=== PATIENT | male | born 1965 | race Caucasian/White ===

== ENCOUNTER 2018-06-29 19:29 | Emergency (ER) | payer OTHER ==
[~2018-06-29] VITALS: Ht 175.3 cm; Wt 72.6 kg
--- NOTE | 2018-06-29 20:31 | NUR ---
PT PRESENTED TO THE ER WITH A C/O BILATERAL LOWER BACK PAIN. PT STATED THAT HE HAS BACK PAIN CONSTANTLY AND ESPECIALLY WHEN HE BENDS OVER. PT AMBULATED TO BED #6 WITH A SLOW STEADY GAIT. URINE SAMPLE OBTAINED AND SENT TO LAB.
[2018-06-29] MEDS ORDERED: IBUPROFEN 600 MG TABLET PO ONE ×2 (20:45→21:00)
[2018-06-29] MEDS ORDERED: CYCLOBENZAPRINE 10 MG TABLET ONE (20:45)
[2018-06-29] MEDS ORDERED: CYCLOBENZAPRINE 10 MG TABLET PO ONE (21:00)
--- NOTE | 2018-06-29 21:01 | NUR ---
PT RETURNED FROM RADIOLOGY VIA .
[2018-06-29] MEDS ORDERED: LORAZEPAM 1 MG TABLET ONE (21:25)
[2018-06-29] MEDS ORDERED: LORAZEPAM 1 MG TABLET PO ONE (21:30)
[2018-06-29 21:34] VITALS: BP 138/88
== END 2018-06-29 21:35 | disposition home or self-care (01) ==
LOC: ER 19:31
DX: M54.5 Low back pain (principal); I10 Essential (primary) hypertension; F17.200 Nicotine dependence, unspecified, uncomplicated; I25.10 Atherosclerotic heart disease of native coronary artery without angina pectoris; Z86.79 Personal history of other diseases of the circulatory system; Z95.5 Presence of coronary angioplasty implant and graft; E78.5 Hyperlipidemia, unspecified
CPT/HCPCS: 72100; 99284; A4606; Z7610

== ENCOUNTER 2018-08-21 15:26 | Emergency (ER) | payer OTHER ==
[~2018-08-21] VITALS: Ht 170.2 cm; Wt 74.4 kg
[~2018-08-21 15:26] MED LIST: ASPI-605 PO; ATOR40TA PO; BUSP30TA2 PO; CALC60OI5 TP; CYCL10TA9 PO; ESCI10TA PO; HYDR-3028 PO; IBUP-1953 PO; LORA-259 PO; MECL-102 PO; METO25TA6 PO; NITR0.4T48 SL; NITR1PAT67 TD; ONDA4TAB5 PO; PRAZ1CAP5 PO; PROP10TA10 PO; QUET100T PO; RAMI2.5C2 PO; TEMA30CA5 PO; [UNRECOGNIZED DRUG - OTHER] TOP
[2018-08-21] MEDS ORDERED: IBUPROFEN 600 MG TABLET PO ONE ×2 (15:58→16:00)
[2018-08-21 16:04] VITALS: BP 128/76
== END 2018-08-21 16:06 | disposition home or self-care (01) ==
LOC: ER 15:33
DX: M54.5 Low back pain (principal); I10 Essential (primary) hypertension; E78.5 Hyperlipidemia, unspecified; F17.200 Nicotine dependence, unspecified, uncomplicated; I25.10 Atherosclerotic heart disease of native coronary artery without angina pectoris; Z95.818 Presence of other cardiac implants and grafts; Z79.82 Long term (current) use of aspirin; Z79.899 Other long term (current) drug therapy
CPT/HCPCS: 99283; A4606; Z7610

== ENCOUNTER 2018-08-26 16:01 | Emergency (ER) | payer OTHER ==
[~2018-08-26] VITALS: Ht 152.4 cm; Wt 76.2 kg
[2018-08-26 16:01] VITALS: BP 136/95
--- NOTE | 2018-08-26 16:40 | NUR ---
CALLED THE OFFICE OF DR AZEVEDO AND A PAGE WAS SENT OUT TO HIM
== END 2018-08-26 17:24 | disposition home or self-care (01) ==
LOC: ER 16:03
DX: F41.9 Anxiety disorder, unspecified (principal); F41.0 Panic disorder [episodic paroxysmal anxiety]; I10 Essential (primary) hypertension; I25.10 Atherosclerotic heart disease of native coronary artery without angina pectoris; E78.5 Hyperlipidemia, unspecified; F17.200 Nicotine dependence, unspecified, uncomplicated; Z95.818 Presence of other cardiac implants and grafts; Z88.6 Allergy status to analgesic agent; Z79.82 Long term (current) use of aspirin; Z79.899 Other long term (current) drug therapy
CPT/HCPCS: 99284; A4606; Z7610

== ENCOUNTER 2018-12-22 21:20 | Inpatient (IN) | payer OTHER ==
[~2018-12-22] VITALS: Ht 175.3 cm; Wt 93.0 kg
--- NOTE | 2018-12-22 21:27 | NUR ---
PT BIBSELF FROM HOME C/O CP X1HR. TOOK 3 NITRO SL X3 RISK OFFICER NO RELIEF. PT REPORTS H/A, PT AAOX4, RESPIRATIONS EVEN AND UNLABORED, NO SOB, PT ON MONITOR, VSS, REPORTS CHEST PAIN, NON-RADIATING, PT TO BED 13, PENDING MD OBREGON
[2018-12-22 21:42] LABS: BASOPHILS # (AUTO) 0.1 /CMM (0.0-0.2); BASOPHILS % (AUTO) 0.8 % (0.0-2.0); HEMATOCRIT 40 % (39-51); HEMOGLOBIN 13.5 g/dL (13.5-17.5); LYMPHOCYTES # (AUTO) 5.2 /CMM (0.8-4.8); LYMPHOCYTES % (AUTO) 47.1 % (20.0-44.0); MEAN CORPUSCULAR HGB CONC 34 g/dl (31.0-36.0); MEAN CORPUSCULAR VOLUME 96 fL (80-96); MONOCYTES # (AUTO) 0.9 /CMM (0.1-1.30); MONOCYTES % (AUTO) 8.5 % (2.0-12.0); NEUTROPHILS # (AUTO) 4.3 /CMM (1.8-8.9); NEUTROPHILS % (AUTO) 39.6 % (43.0-81.0); PLATELET COUNT (AUTO) 239 /CMM (150-450); RED BLOOD CELL COUNT(AUTO) 4.16 MIL/uL (4.5-6.0)
[2018-12-22 21:48] LABS: CALCIUM, SERUM 8.9 mg/dL (8.5-10.1); CARBON DIOXIDE 29 mmol/L (21-32); CHLORIDE 97 mmol/L (98-107); CREATININE 1.5 mg/dL (0.6-1.3); GLUCOSE 94 mg/dL (74-106); POTASSIUM 4.3 mmol/L (3.5-5.1); SODIUM SERUM 132 mmol/L (136-145); UREA NITROGEN, BLOOD 16 mg/dL (7-18)
--- NOTE | 2018-12-22 21:59 | NUR ---
LAB DRAWN FROM [facility], HANDED SPECIMEN TO RATE CLERK. NO URINE ORDER AT THIS TIME
--- NOTE | 2018-12-22 22:50 | NUR ---
CALLED [facility] DIETETICS INSTRUCTOR TADEO TALLEY
--- NOTE | 2018-12-22 22:51 | NUR ---
REQUESTED TELE BED FROM NURSING SUP
[2018-12-22] MEDS ORDERED: MORPHINE SULFATE INJ 10 MG/ML DISP.SYRIN ONE (22:58)
[2018-12-22] MEDS ORDERED: MORPHINE SULFATE INJ 2 MG/ML DISP.SYRIN IV ONE (23:00)
--- NOTE | 2018-12-22 23:13 | NUR ---
ADMIT TO TELE ROOM 321-2 DX CHEST PAIN ACCEPTING STEVEN PIEDRA NP
[2018-12-22] MEDS ORDERED: CLON1TAB12 PO (23:38)
[2018-12-22] MEDS ORDERED: CARI350T PO (23:38)
[2018-12-22] MEDS ORDERED: DESO15OI3 TP (23:38)
--- NOTE | 2018-12-22 23:45 | NUR ---
RECEIVED PATIENT FROM ER FOR DX R/O ACS. AO X 3, ABLE TO MAKE NEEDS KNOWN. NO ACUTE DISTRESS NOTED. NO SIGNS OF PAIN NOTED. IV SITE PATENT, INTACT; FLUSHED. SAFETY REMINDERS GIVEN. ON LOW BED WITH BILATERAL UPPER SIDE RAILS UP. CALL MORATAYA WITHIN EASY REACH. WILL CONTINUE TO MONITOR.
[2018-12-22 23:50] VITALS: BP 101/74
--- NOTE | 2018-12-22 23:52 | NUR ---
REPORT GIVEN TO RODRIGO LAU FOR GRABIEL, TELE 321-2
--- NOTE | 2018-12-22 23:52 | NUR ---
TRANSFERRED TO [facility]- VIA ACLS PROTOCL
[2018-12-23] VITALS (7 sets, daily range): BP systolic 90–126; BP diastolic 58–90
--- NOTE | 2018-12-23 | NUR ---
TELE READING SINUS DAMARIS HR 49
[2018-12-23] MEDS ORDERED: clonazePAM 1 MG TABLET PO PRN (01:30)
[2018-12-23] MEDS ORDERED: MORPHINE SULFATE INJ 2 MG/ML DISP.SYRIN IV PRN (01:30)
[2018-12-23] MEDS ORDERED: ACETAMINOPHEN 325 MG TABLET PO PRN (01:30)
[2018-12-23] MEDS ORDERED: hydrOXYzine HCL SYRUP 10 MG/5 ML UDC PO PRN (01:30)
[2018-12-23] MEDS ORDERED: MAGNESIUM HYDROXIDE 30 ML UDC PO PRN (01:30)
[2018-12-23] MEDS ORDERED: ONDANSETRON HCL/PF 4 MG/2 ML VIAL IVP PRN (01:30)
[2018-12-23] MEDS: busPIRone 5 MG TABLET PO SCH ×2 (01:56→12:53)
[2018-12-23] MEDS: QUETIAPINE FUMARATE 100 MG TABLET PO SCH ×2 (01:58→21:14)
--- NOTE | 2018-12-23 03:22 | NUR ---
OUT OF MORPHINE. TADEO JAMES MADE AWARE WITH NEW ORDER FOR DILAUDID 1 MG IV Q 4 HOURS PRN; NOTED AND CARRIED OUT.
[2018-12-23] MEDS ORDERED: HYDROMORPHONE 1 MG/1 ML DISP.SYRIN IV PRN (03:30)
[2018-12-23] MEDS: HYDROMORPHONE INJ 2 MG/ML DISP.SYRIN IV PRN ×4 (03:58→21:23)
[2018-12-23 04:18] LABS: BASOPHILS % (AUTO) 0.5 % (0.0-2.0); EOSINOPHILS % (AUTO) 4.4 % (0.0-6.0); HEMATOCRIT 38 % (39-51); LYMPHOCYTES # (AUTO) 4.7 /CMM (0.8-4.8); LYMPHOCYTES % (AUTO) 46.6 % (20.0-44.0); MEAN CORPUSCULAR HGB CONC 34 g/dl (31.0-36.0); MEAN CORPUSCULAR VOLUME 95 fL (80-96); MONOCYTES % (AUTO) 9.4 % (2.0-12.0); NEUTROPHILS % (AUTO) 39.1 % (43.0-81.0); PLATELET COUNT (AUTO) 211 /CMM (150-450); WHITE BLOOD COUNT (AUTO) 10.1 K/uL (4.3-11.0)
[2018-12-23 04:39] LABS: CALCIUM, SERUM 8.2 mg/dL (8.5-10.1); CREATININE 1.3 mg/dL (0.6-1.3); MAGNESIUM 1.7 mg/dL (1.8-2.4); PHOSPHORUS 4.4 mg/dL (2.5-4.9); POTASSIUM 4.2 mmol/L (3.5-5.1)
--- NOTE | 2018-12-23 06:41 | NUR ---
PATIENT ASLEEP, EASILY AROUSABLE. RESPIRATIONS EVEN. NO SIGNS OF PAIN NOTED. DUE MEDS GIVEN WITH NO ASE NOTED. NEEDS ATTENDED. SAFETY PRECAUTIONS AND COMFORT MEASURES IN PLACE. WILL GIVE REPORT TO DAY SHIFT FOR CONTINUITY OF CARE.
--- NOTE | 2018-12-23 07:17 | NUR ---
MS/RN Patient received Patient received from bone char kiln operator. A/O X4, denies any chest pain or pressure atthis time, tele monitor continues to read SB. heplock flushing well with normal saline, no signs of infiltration. All questions answered and concerns addressed. Safety measures in place, call light within reach, will continue to monitor andensure safety.
[2018-12-23] MEDS: ASPIRIN EC 81 MG TABLET.DR PO SCH (08:27)
[2018-12-23] MEDS ORDERED: NITROGLYCERIN 0.4 MG/TAB BOTTLE SL PRN ×2 (10:00→13:30)
[2018-12-23] MEDS: METOPROLOL TARTRATE 25 MG TABLET PO SCH ×2 (10:00→16:57)
[2018-12-23] MEDS ORDERED: PROPRANOLOL HCL 10 MG TABLET PO PRN (10:00)
--- NOTE | 2018-12-23 10:17 | NUR ---
MS/RN S/B Dr Ray Seen by Dr Ray - recent lexiscan negative, CT angiogram ordered, patient to remain NPO.
[2018-12-23] MEDS: RAMIPRIL 1.25 MG CAPSULE PO SCH (10:19)
[2018-12-23] MEDS ORDERED: IV NS 0.9% 1,000 ML BAG IV ONE (11:00)
--- NOTE | 2018-12-23 11:00 | NUR ---
MS/RN Consent Consent form signed by patient after explanation of procedure. 18g heplock started on right AC. Blood pressure 92/56, made aware, one liter normal saline bolus ordered and administered.
--- NOTE | 2018-12-23 11:06 | NUR ---
MS/RN 2Decho 2D echo in progress at bedside.
[2018-12-23] MEDS: Magnesium 1GM/D5W 100ML PREMIX 100 ML IV SCH ×2 (11:27→12:42)
[2018-12-23] MEDS ORDERED: CT SWABBABLE VALVE TRANS SET 1 EA INFUS.SET MC ONE (13:13)
[2018-12-23] MEDS ORDERED: IV NS 0.9% 250 ML IV ONE (13:13)
[2018-12-23] MEDS ORDERED: IOHEXOL-350 100 ML VIAL IV ONE (13:13)
[2018-12-23] MEDS ORDERED: METOPROLOL TARTRATE INJ 5 MG/5 ML AMPUL IVP PRN (13:30)
--- NOTE | 2018-12-23 13:30 | NUR ---
MS/RN CT angio Patient taken to cardiology for CT angiogram.
--- NOTE | 2018-12-23 13:40 | NUR ---
CTA RN NOTE Patient on CT, A/Ox4, aware for the procedure. All questions and concerns were answered. With RAC PIV g18. Received with SB 53, no Metoprolol given. Nitro 0.4 SL given for CTA scan. Please see CTA charting. Done with CTA, patient remained stable. No any significant changes noted. Accompanied by [employer] to room.
--- NOTE | 2018-12-23 14:33 | NUR ---
MS/RN Back to room Patient back in room following CTA, no results as of this time.
[2018-12-23] MEDS: CARISOPRODOL 350 MG TABLET PO SCH (16:57)
--- NOTE | 2018-12-23 18:04 | NUR ---
received call from Dr. Gilman to order stress test for am, pt and nurse informed.
--- NOTE | 2018-12-23 18:07 | NUR ---
MS/RN End note Patient consented for lexiscan tomorrow morning, aware of the need to be NPO from midnight. No further episodes of chest pain. All questions and concerns addressed, call light within reach. Will endorse to material handler 2nd shift.
--- NOTE | 2018-12-23 19:05 | NUR ---
MS RN OPENING NOTES RECEIVED PATIENT IN BED, WATCHING TV, ALERT, ORIENTED X 4. BREATHING EVEN AND UNLABORED. nOT IN ANY DISTRESS. NO COMPLAINTS OF THIS TIME. IV SITE ON RAC G#18 PATIENT AND INTACT. CALL MORATAYA WITHIN REACH. BED IN LOW, LOCKED POSITION. PATIENT STABLE ENDORSED BY THE AM RN. WILL CONTINUE TO MONITOR ACCORDINGLY
[2018-12-23] MEDS: ATORVASTATIN 40 MG TABLET PO SCH (21:12)
[2018-12-23] MEDS: ESCITALOPRAM OXALATE (10 MG) 10 MG TABLET PO SCH (21:13)
[2018-12-23] MEDS: PRAZOSIN HCL 1 MG CAPSULE PO SCH (21:14)
--- NOTE | 2018-12-23 21:25 | NUR ---
RN NOTES PATIENT C/O GENERALIZED AND CHEST PAIN, 07/09. BP CHECKED- 105/58. DILAUDID 1MG GIVEN ORDERED. REST OF DILAUDID WASTED WITH OTHER RN
[2018-12-23] MEDS: TEMAZEPAM 15 MG CAPSULE PO PRN (22:16)
[2018-12-24] MEDS: busPIRone 5 MG TABLET PO SCH ×2 (00:58→13:39)
--- NOTE | 2018-12-24 06:46 | NUR ---
MS RN CLOSING NOTE PATIENT SLEEPING IN BED, EASILY AROUSABLE. BREATHING EVEN AND UNLABORED. NOT IN ANY DISTRESS. NO COMPLAINTS OF THIS TIME. IV SITE ON RAC G#18 PATENT AND INTACT. PATIENT NPO SINCE MIDNIGHT. ALL NEEDS ATTENDED TO. DUE MEDICATIONS GIVEN ORDERED. CALL MORATAYA WITHIN REACH. BED IN LOW, LOCKED POSITION. WILL ENDORSE GRABIEL TO ONCOMING RN.
--- NOTE | 2018-12-24 07:32 | NUR ---
MS RN OPENING NOTES RECEIVED PT AWAKE IN BED IN NO ACUTE SIGNS OF DISTRESS. A/O X4. ABLE TO VERBALIZED NEEDS WITH NO C/O PAIN OR DISCOMFORTS VOICED AT THIS TIME. PT FOR NM MYOCARDIAL STRESS TEST TODAY, NPO MAINTAINED. ON ROOM AIR, BREATHING EVEN AND UNLABORED. IV ACCESS ON RAC INTACT AND PATENT. BED IN LOW LOCKED POSITION WITH UPPER RAILS UP. CALL LIGHT WITHIN REACH. WILL CONTINUE TO MONITOR.
[2018-12-24 07:54] LABS: BASOPHILS # (AUTO) 0.1 /CMM (0.0-0.2); BASOPHILS % (AUTO) 0.5 % (0.0-2.0); EOSINOPHILS % (AUTO) 3.5 % (0.0-6.0); HEMATOCRIT 39 % (39-51); HEMOGLOBIN 13.2 g/dL (13.5-17.5); LYMPHOCYTES # (AUTO) 2.9 /CMM (0.8-4.8); LYMPHOCYTES % (AUTO) 28.9 % (20.0-44.0); MEAN CORPUSCULAR HGB CONC 34 g/dl (31.0-36.0); MEAN CORPUSCULAR VOLUME 94 fL (80-96); MONOCYTES % (AUTO) 10.2 % (2.0-12.0); NEUTROPHILS # (AUTO) 5.6 /CMM (1.8-8.9); NEUTROPHILS % (AUTO) 56.9 % (43.0-81.0); PLATELET COUNT (AUTO) 226 /CMM (150-450); RED BLOOD CELL COUNT(AUTO) 4.09 MIL/uL (4.5-6.0); WHITE BLOOD COUNT (AUTO) 9.9 K/uL (4.3-11.0)
[2018-12-24 08:00] VITALS: BP 118/62
[2018-12-24 08:04] LABS: ALANINE AMINOTRANSFERASE 61 U/L (12-78); ALBUMIN 3.8 g/dL (3.4-5.0); ALKALINE PHOSPHATASE 104 U/L (46-116); ASPARTATE AMINOTRANSFERASE 25 U/L (15-37); BILIRUBIN,TOTAL 0.6 mg/dL (0.2-1.0); CALCIUM, SERUM 8.8 mg/dL (8.5-10.1); CARBON DIOXIDE 29 mmol/L (21-32); CHLORIDE 104 mmol/L (98-107); GLUCOSE 99 mg/dL (74-106); MAGNESIUM 2.5 mg/dL (1.8-2.4); PHOSPHORUS 3.6 mg/dL (2.5-4.9); POTASSIUM 4.8 mmol/L (3.5-5.1); SODIUM SERUM 140 mmol/L (136-145); TOTAL PROTEIN, SERUM 7.2 g/dL (6.4-8.2); UREA NITROGEN, BLOOD 14 mg/dL (7-18)
[2018-12-24] MEDS ORDERED: REGADENOSON 0.4 MG/5 ML DISP.SYRIN IVP ONE (08:30)
[2018-12-24] MEDS: MECLIZINE HCL 25 MG TABLET PO SCH (09:18)
[2018-12-24] MEDS: METOPROLOL TARTRATE 25 MG TABLET PO SCH ×2 (09:18→16:37)
[2018-12-24] MEDS: RAMIPRIL 1.25 MG CAPSULE PO SCH (09:18)
[2018-12-24] MEDS: ASPIRIN EC 81 MG TABLET.DR PO SCH (09:18)
[2018-12-24] MEDS: HYDROMORPHONE INJ 2 MG/ML DISP.SYRIN IV PRN ×3 (09:44→23:49)
--- NOTE | 2018-12-24 09:48 | NUR ---
RN NOTES/PAIN MANAGEMENT PATIENT NOTED GRIMACING AND RUBBING HIS LEFT CHEST WITH COMPLAINED OF PAIN ON LEFT CHEST WITH SCALE OF 8/10, PRN DILAUDID 1MH IVP ADMINISTERED AT 0944. WILL CONTINUE TO MONITOR AND REASSESS PT.
[2018-12-24] MEDS: CARISOPRODOL 350 MG TABLET PO SCH (11:37)
[2018-12-24 15:56] VITALS: BP 87/55
--- NOTE | 2018-12-24 18:35 | NUR ---
RN NOTES/PAIN MANAGEMENT PATIENT NOTED GRIMACING AND RUBBING HIS LEFT CHEST WITH COMPLAINED OF PAIN ON LEFT CHEST WITH SCALE OF 8/10. REQUESTED FOR DILAUDID. BP CHECKED AND WAS 110/72MMHG, HR 79. PRN DILAUDID 1MH IVP ADMINISTERED AT 1832. WILL CONTINUE TO MONITOR AND REASSESS PT.
--- NOTE | 2018-12-24 18:42 | NUR ---
MS RN CLOSING NOTES PT AWAKE AND RESTING IN BED. A/O X4. AMBULATORY AND ABLE TO MAKE NEEDS KNOWN. ON ROOM AIR, BREATHING EVEN AND UNLABORED. IV ACCESS ON RAC INTACT AND PATENT, FLUSHES WELL, NO S/S OF INFILTRATIONS NOTED. ALL NEEDS AND CARE ATTENDED WELL. BED IN LOW LOCKED POSITION WITH UPPER SIDE RAILS UP X2. CALL LIGHT WITHIN REACH. WILL ENDORSE TO PRINCIPAL NETWORK ENGINEER NURSE FOR GRABIEL.
--- NOTE | 2018-12-24 19:15 | NUR ---
MS RN OPENING NOTES RECEIVED PATIENT IN BED, ALERT, ORIENTED X 4. BREATHING EVEN AND UNLABORED. NOT IN ANY DISTRESS. NO COMPLAINTS OF THIS TIME. IV SITE ON RAC G#18 PATIENT AND INTACT. CALL MORATAYA WITHIN REACH. BED IN LOW, LOCKED POSITION. PATIENT STABLE ENDORSED BY THE AM RN. WILL CONTINUE TO MONITOR ACCORDINGLY
[2018-12-24 20:00] VITALS: BP 121/86
--- NOTE | 2018-12-24 20:21 | NUR ---
RN NOTES Patient complaining of anxiety. Requested clonazepam- given 1mg as ordered
[2018-12-24] MEDS: PRAZOSIN HCL 1 MG CAPSULE PO SCH (21:24)
[2018-12-24] MEDS: ESCITALOPRAM OXALATE (10 MG) 10 MG TABLET PO SCH (21:24)
[2018-12-24] MEDS: QUETIAPINE FUMARATE 100 MG TABLET PO SCH (21:24)
[2018-12-24] MEDS: ATORVASTATIN 40 MG TABLET PO SCH (21:24)
[2018-12-24 23:52] VITALS: BP 105/70
--- NOTE | 2018-12-24 23:52 | NUR ---
N NOTES PATIENT COMPLAINED OF PAIN ON LEFT CHEST WITH SCALE OF 8/10. REQUESTED FOR DILAUDID. BP CHECKED AND WAS 105/70MMHG, HR 73. PRN DILAUDID 1MH IVP ADMINISTERED ORDERED. WILL CONTINUE TO MONITOR PATIENT.
[2018-12-25] MEDS: TEMAZEPAM 15 MG CAPSULE PO PRN (00:48)
[2018-12-25] MEDS: busPIRone 5 MG TABLET PO SCH ×2 (00:56→13:58)
[2018-12-25] MEDS: HYDROMORPHONE INJ 2 MG/ML DISP.SYRIN IV PRN ×3 (07:07→18:29)
--- NOTE | 2018-12-25 07:09 | NUR ---
RN NOTES PATIENT COMPLAINED OF PAIN ON LEFT CHEST WITH SCALE OF 8/10. REQUESTED FOR DILAUDID. BP CHECKED AND WAS 114/72MMHG, HR 33. PRN DILAUDID 1MH IVP ADMINISTERED ORDERED. WILL CONTINUE TO MONITOR PATIENT.
[2018-12-25 07:21] LABS: BASOPHILS # (AUTO) 0.1 /CMM (0.0-0.2); BASOPHILS % (AUTO) 0.7 % (0.0-2.0); EOSINOPHILS % (AUTO) 5.1 % (0.0-6.0); HEMATOCRIT 38 % (39-51); HEMOGLOBIN 12.7 g/dL (13.5-17.5); LYMPHOCYTES # (AUTO) 3.6 /CMM (0.8-4.8); LYMPHOCYTES % (AUTO) 49.2 % (20.0-44.0); MEAN CORPUSCULAR HGB CONC 34 g/dl (31.0-36.0); MEAN CORPUSCULAR VOLUME 95 fL (80-96); MONOCYTES # (AUTO) 0.7 /CMM (0.1-1.30); MONOCYTES % (AUTO) 9.9 % (2.0-12.0); NEUTROPHILS # (AUTO) 2.5 /CMM (1.8-8.9); NEUTROPHILS % (AUTO) 35.1 % (43.0-81.0); PLATELET COUNT (AUTO) 215 /CMM (150-450); RED BLOOD CELL COUNT(AUTO) 3.95 MIL/uL (4.5-6.0); WHITE BLOOD COUNT (AUTO) 7.2 K/uL (4.3-11.0)
--- NOTE | 2018-12-25 07:24 | NUR ---
MS RN OPENING NOTES RECEIVED PATIENT AWAKE IN BED IN NO ACUTE SIGNS OF DISTRESS. ALERT X4. ABLE TO VERBALIZE NEEDS AND STATED THAT HE JUST RECEIVED PAIN MEDICATION AND HE'S FINE AT THIS TIME. ON ROOM AIR, BREATHING EVEN AND UNLABORED. IV ACCESS RAC INTACT AND PATENT. BED IN LOW LOCKED POSITIONS WITH SR UP X2. CALL LIGHT WITHIN REACH. WILL CONTINUE TO MONITOR ACCORDINGLY.
[2018-12-25 07:50] LABS: CALCIUM, SERUM 8.5 mg/dL (8.5-10.1); POTASSIUM 4.3 mmol/L (3.5-5.1)
--- NOTE | 2018-12-25 07:54 | NUR ---
MS RN CLOSING NOTE PATIENT SITTING UP IN BED, ALERT, ORIENTED X 4. BREATHING EVEN AND UNLABORED. NOT IN ANY DISTRESS. NO COMPLAINTS OF THIS TIME. IV SITE ON RAC G#18 PATENT AND INTACT. ALL NEEDS ATTENDED TO. DUE MEDICATIONS GIVEN ORDERED. CALL MORATAYA WITHIN REACH. BED IN LOW, LOCKED POSITION. ENDORSED GRABIEL TO RODRIGO BRAR.
[2018-12-25 08:00] VITALS: BP 121/87
[2018-12-25] MEDS: MECLIZINE HCL 25 MG TABLET PO SCH (08:13)
[2018-12-25] MEDS: RAMIPRIL 1.25 MG CAPSULE PO SCH (08:14)
[2018-12-25] MEDS: ASPIRIN EC 81 MG TABLET.DR PO SCH (08:14)
[2018-12-25] MEDS: METOPROLOL TARTRATE 25 MG TABLET PO SCH ×2 (08:14→16:45)
[2018-12-25] MEDS: CARISOPRODOL 350 MG TABLET PO SCH (12:11)
--- NOTE | 2018-12-25 14:20 | NUR ---
RN NOTES/PAIN MANAGEMENT PATIENT COMPLAINED OF PAIN ON LEFT CHEST WITH SCALE OF 8/10. REQUESTED FOR DILAUDID. BP CHECKED AND WAS 112/72MMHG,. PRN DILAUDID 1MH IVP ADMINISTERED AT 1416. WILL CONTINUE TO MONITOR AND REASSESS PT.
[2018-12-25 16:00] VITALS: BP 108/70
[2018-12-25 16:45] VITALS: BP 100/70
--- NOTE | 2018-12-25 18:31 | NUR ---
RN NOTES/PAIN MANAGEMENT PATIENT NOTED WALKING AROUND UNIT AND THEN COMPLAINED OF PAIN ON LEFT CHEST WITH SCALE OF 8/10. REQUESTED FOR DILAUDID. PRN DILAUDID 1MH IVP ADMINISTERED AT 1829. WILL CONTINUE TO MONITOR AND REASSESS PT.
--- NOTE | 2018-12-25 18:48 | NUR ---
MS RN CLOSING NOTES PT IN HIS ROOM SITTING ON CHAIR BY BEDSIDE. A/O X4. AMBULATORY AND ABLE TO MAKE NEEDS KNOWN. ON ROOM AIR, BREATHING EVEN AND UNLABORED. IV ACCESS ON RAC INTACT AND PATENT, FLUSHES WELL, NO S/S OF INFILTRATIONS NOTED. ALL NEEDS AND CARE ATTENDED WELL. PT FOR DISCHARGE TONIGHT, ALL DISCHARGE/EXIT PAPERS DONE. WILL ENDORSE TO QUALITY IMPROVEMENT MANAGER NURSE.
--- NOTE | 2018-12-25 19:12 | NUR ---
HOSPITAL INTERN NOTES PATIENT DISCHARGED HOME IN STABLE CONDITION. A/O X4. VERBALLY RESPONSIVE WITH NO COMPLAINTS VOICED DURING DISCHARGE. V/S TAKEN AND RECORDED. SKIN IS INTACT. BELONGINGS ALL ACCOUNTED FOR AND SIGNED FORM. PT EDUCATED ON SMOKING CESSATION AND DISCHARGE INSTRUCTIONS GIVEN, PT VERBALIZED UNDERSTANDING. IV ACCESS REMOVED, MINIMAL BLEEDING NOTED, PRESSURE GAUZED APPLIED. NAME ARMBAND REMOVED. PRESCRIPTION HANDED TO PT. PT LEFT UNIT @ 1900 AMBULATORY ACCOMPANIED BY FRIEND ABY. CHARGE NURSE AWARE OF DISCHARGE.
== END 2018-12-25 19:05 | disposition home or self-care (01) | DRG 198 ==
LOC: ER 21:22 → TELE 23:31 → MED 12-23 10:29
PROVIDERS: ADMIT Nurse Practitioner Acute Care; ATTEND Nurse Practitioner Acute Care
DX: I25.10 Atherosclerotic heart disease of native coronary artery without angina pectoris (principal); N17.0 Acute kidney failure with tubular necrosis; E78.5 Hyperlipidemia, unspecified; F43.10 Post-traumatic stress disorder, unspecified; I10 Essential (primary) hypertension; Z95.5 Presence of coronary angioplasty implant and graft; R00.1 Bradycardia, unspecified; T44.7X5A Adverse effect of beta-adrenoreceptor antagonists, initial encounter; Y92.89 Other specified places as the place of occurrence of the external cause; T46.4X5A Adverse effect of angiotensin-converting-enzyme inhibitors, initial encounter; F41.9 Anxiety disorder, unspecified; F17.210 Nicotine dependence, cigarettes, uncomplicated; K57.90 Diverticulosis of intestine, part unspecified, without perforation or abscess without bleeding
CPT/HCPCS: 36415; 71045-TC; 75574; 80048-TC; 80053-TC; 80061-TC; 83735-TC; 84100-TC; 84484-TC; 85025-TC; 85730-TC; 87081-TC; 93307-TC; A4216; A9502; G0378; J1170; J2270; J2785; J3475; J7030; J7050; J8597; Q9967

== ENCOUNTER 2019-01-29 10:43 | Inpatient (IN) | payer OTHER ==
[~2019-01-29] VITALS: Ht 175.3 cm; Wt 73.0 kg
[~2019-01-29 10:43] MED LIST changes: +CARI350T PO; +CLON1TAB12 PO; -CYCL10TA9 PO; +DESO15OI3 TP; -IBUP-1953 PO; -LORA-259 PO; -ONDA4TAB5 PO; -[UNRECOGNIZED DRUG - OTHER] TOP
[2019-01-29 11:00] VITALS: BP 98/63
--- NOTE | 2019-01-29 11:00 | NUR ---
received pt a/ox4 , direct adm. Pt arrived via gurney. VS are stable and within normal range , on room air saturating well. has complain of chest pain. Iv assess on RAC #20 flushing well. PT DNR/DNI ( POLST attached carlitos the chart). Pt skin intact. Will inform adm. doctor and f/u with further orders
[2019-01-29 16:00] VITALS: BP 94/59
--- NOTE | 2019-01-29 16:56 | NUR ---
Patient was cleared for d/c to home. Pt alert and oriented x4 , no distress , no complain of pain. Pt on room air saturating 97%, vs are stable and within the normal range. iv line removed and id wrist band removed as well. D/c instructions given to patient and pt verbalized understanding. Valuable form sighed, d/c instructions form sighed. Patient ambulatory, no skin issues.
== END 2019-01-29 16:54 | disposition home or self-care (01) | DRG 198 ==
LOC: MED 10:43 → TELE 10:55 → MED 16:01
PROVIDERS: ADMIT Nurse Practitioner Acute Care; ATTEND Nurse Practitioner Acute Care
DX: I25.119 Atherosclerotic heart disease of native coronary artery with unspecified angina pectoris (principal); E78.5 Hyperlipidemia, unspecified; Z82.49 Family history of ischemic heart disease and other diseases of the circulatory system; F17.210 Nicotine dependence, cigarettes, uncomplicated; F43.10 Post-traumatic stress disorder, unspecified; I10 Essential (primary) hypertension; Z98.61 Coronary angioplasty status
CPT/HCPCS: 36415; 84484-TC; G0378

== ENCOUNTER 2019-03-23 18:24 | Inpatient (IN) | payer OTHER ==
[~2019-03-23] VITALS: Ht 175.3 cm; Wt 92.1 kg
--- NOTE | 2019-03-23 20:45 | NUR ---
report rec[facility]ved [facility] report recieved from judy gutierrez. patient being transferred with diagnosis of cp. per report patient is stable but heart rhythm sometimes is sinus stephanie but patient does not have symptoms. patient still having cp at 8/10 but per nurse patient is sitting in bed with arms crossed in no apparent distress. patient was given aspirin and nitro [facility] and at their er he recieved fentanyl 3 times to try to manage pain. ambulance is there to pick pulling machine tender patient and will be transferring to [facility].
--- NOTE | 2019-03-23 21:30 | NUR ---
admission note patient arrived to room 316 report recieved from ambulance company. initial vss taken patient alert and oriented in no apparent distress. oriented to room. call light in reach bed down locked. will await admission orders.
[2019-03-23] MEDS ORDERED: ACETAMINOPHEN 325 MG TABLET PO PRN (22:30)
[2019-03-23] MEDS ORDERED: ONDANSETRON HCL/PF 4 MG/2 ML VIAL IVP PRN (22:30)
[2019-03-23] MEDS ORDERED: clonazePAM 1 MG TABLET PO PRN (22:30)
[2019-03-23] MEDS ORDERED: Z GUARD REMEDY 2 OZ OINT TP PRN (22:30)
[2019-03-23 22:45] VITALS: BP 115/76
[2019-03-23] MEDS: MORPHINE SULFATE INJ 4 MG/ML DISP.SYRIN IV PRN (23:09)
--- NOTE | 2019-03-23 23:09 | NUR ---
pain prn medication patient complaining of cp 8/10 that is pressure in mid chest. states "It feels like a balloon is infalted in there." patient given morphine as ordered for pain.
[2019-03-23] MEDS ORDERED: ENOXAPARIN SODIUM 40 MG/0.4 ML DISP.SYRIN SQ ONE (23:45)
[2019-03-24] VITALS: BP 127/79
[2019-03-24] MEDS ORDERED: NITROGLYCERIN PACKET 1 GM PACKET ONE ×3 (00:06→06:58)
[2019-03-24] MEDS: NITROGLYCERIN 30 GM TUBE TP SCH ×4 (00:19→17:13)
[2019-03-24] MEDS: MORPHINE SULFATE INJ 4 MG/ML DISP.SYRIN IV PRN ×4 (04:29→17:25)
[2019-03-24 04:34] VITALS: BP 94/47
--- NOTE | 2019-03-24 07:10 | NUR ---
RN CLOSING NOTES. REPORT GIVEN TO SOFIA . PATIENT IN NO APPARENT DISTRESS. IN BED DOWN LOCKED SR X2 CALL LIGHT IN REACH.
[2019-03-24 07:35] LABS: BASOPHILS # (AUTO) 0.1 /CMM (0.0-0.2); BASOPHILS % (AUTO) 0.8 % (0.0-2.0); EOSINOPHILS % (AUTO) 3.9 % (0.0-6.0); HEMATOCRIT 36 % (39-51); HEMOGLOBIN 12.5 g/dL (13.5-17.5); LYMPHOCYTES # (AUTO) 4.8 /CMM (0.8-4.8); LYMPHOCYTES % (AUTO) 48.5 % (20.0-44.0); MEAN CORPUSCULAR HGB CONC 35 g/dl (31.0-36.0); MEAN CORPUSCULAR VOLUME 96 fL (80-96); MONOCYTES # (AUTO) 0.9 /CMM (0.1-1.30); MONOCYTES % (AUTO) 9.4 % (2.0-12.0); NEUTROPHILS # (AUTO) 3.7 /CMM (1.8-8.9); NEUTROPHILS % (AUTO) 37.4 % (43.0-81.0); PLATELET COUNT (AUTO) 252 /CMM (150-450); RED BLOOD CELL COUNT(AUTO) 3.76 MIL/uL (4.5-6.0); THYROID STIMULATING HORMONE 6.67 uIU/mL (0.358-3.74); WHITE BLOOD COUNT (AUTO) 9.9 K/uL (4.3-11.0)
--- NOTE | 2019-03-24 07:36 | NUR ---
Tele/RN - Assessment Patient awake, A/O x 4, no complaints overnight, tele shows SB, no c/o dizziness, denies chest pain at this time, no apparent distress noted, afebrile, stable on room air. Saline lock on the RAC with no signs of infiltration. Morning labs with pending result. Skin is intact, independent with bed mobility, ambulatory with steady gait. Patient educated on plan of care. Will continue with current medical management.
[2019-03-24 07:46] LABS: ALBUMIN 3.6 g/dL (3.4-5.0); BILIRUBIN,TOTAL 0.4 mg/dL (0.2-1.0); CALCIUM, SERUM 8.5 mg/dL (8.5-10.1); CREATININE 1.1 mg/dL (0.6-1.3); PHOSPHORUS 4.4 mg/dL (2.5-4.9); POTASSIUM 4.2 mmol/L (3.5-5.1)
--- NOTE | 2019-03-24 08:00 | NUR ---
Tele/RN - Cardio consult Seen and examined by Dr. Ray with order to transfer to acute hospital for heart catheterization. manager heart to arrange acute transfer.
[2019-03-24] MEDS: METOPROLOL TARTRATE 25 MG TABLET PO SCH ×2 (08:03→16:57)
[2019-03-24] MEDS: busPIRone 5 MG TABLET PO SCH ×3 (08:20→16:58)
[2019-03-24 08:43] VITALS: BP 90/70
[2019-03-24] MEDS ORDERED: RAMIPRIL 1.25 MG CAPSULE PO SCH (09:00)
[2019-03-24] MEDS ORDERED: ASPIRIN EC 81 MG TABLET.DR PO SCH (09:00)
[2019-03-24] MEDS ORDERED: CLOPIDOGREL BISULFATE 75 MG TABLET PO SCH (09:00)
[2019-03-24] MEDS ORDERED: RAMIPRIL 5 MG CAPSULE PO SCH (09:00)
--- NOTE | 2019-03-24 09:00 | NUR ---
Tele/RN - notes Patient resting comfortably, denies chest pressure, morphine given was effective.
--- NOTE | 2019-03-24 11:30 | NUR ---
Tele/RN - Notes Patient resting comfortably, chest pain is bearable, tele shows SR, still waiting for accepting hospital.
[2019-03-24 12:22] VITALS: BP 127/63
--- NOTE | 2019-03-24 14:30 | NUR ---
Tele/RN - Notes Patient signed consent for smoking, aware of risks and consequences that may arise. Smoking cessation education given. Patient still insists of going out to smoke.
--- NOTE | 2019-03-24 15:10 | NUR ---
Tele/RN - Notes Per outsole caser, accepting hospital is [facility], pt made aware. Will arrange for ambulance transfer once doctor to doctor endorsement is completed.
--- NOTE | 2019-03-24 16:40 | NUR ---
Tele/RN - Notes Per case fitter, still waiting for doctor to doctor endorsement. Patient will be going to [facility] Rm 201-1, call report to [phone], ambulance ETA 19:30.
[2019-03-24 16:50] VITALS: BP 109/79
--- NOTE | 2019-03-24 18:58 | NUR ---
Tele/RN - End of shift summary No new events seen. Patient to be transferred to [facility] Rm 201-1 [place], report given to RODRIGO Casanova at [phone]. Will endorse to night RN for completion of discharge.
--- NOTE | 2019-03-24 19:30 | NUR ---
MS/RN RECEIVE PATIENT AWAKE, ALERT, ORIENTED, COMFORTABLE, NO C/O PAIN, NO DISTRESS NOTED, PATIENT WILL BE DISCHARGED TO [facility], WAITING FOR THE AMBULANCE. PATIENT IS AWARE. WILL MONITOR.
[2019-03-24 20:00] VITALS: BP 118/87
--- NOTE | 2019-03-24 20:10 | NUR ---
TELE/RN AMBULANCE IS HERE, REPORT WAS GIVEN TO EMT.
--- NOTE | 2019-03-24 20:30 | NUR ---
TELE/RN PATIENT LEFT THE FLOOR IN STABLE CONDITION.
[2019-03-24] MEDS ORDERED: ENOXAPARIN SODIUM 40 MG/0.4 ML DISP.SYRIN SQ SCH (21:00)
[2019-03-24] MEDS ORDERED: ATORVASTATIN 40 MG TABLET PO SCH (22:00)
[2019-03-24] MEDS ORDERED: QUETIAPINE FUMARATE 100 MG TABLET PO SCH (22:00)
[2019-03-24] MEDS ORDERED: PRAZOSIN HCL 1 MG CAPSULE PO SCH (22:00)
[2019-03-24] MEDS ORDERED: ESCITALOPRAM OXALATE (10 MG) 10 MG TABLET PO SCH (22:00)
== END 2019-03-24 20:30 | disposition short-term general hospital (02) | DRG 198 ==
LOC: TELE 21:23
PROVIDERS: ADMIT Nurse Practitioner Acute Care; ATTEND Nurse Practitioner Acute Care
DX: I25.10 Atherosclerotic heart disease of native coronary artery without angina pectoris (principal); E20.1 Pseudohypoparathyroidism; K57.92 Diverticulitis of intestine, part unspecified, without perforation or abscess without bleeding; E78.5 Hyperlipidemia, unspecified; F43.10 Post-traumatic stress disorder, unspecified; G89.4 Chronic pain syndrome; Z90.49 Acquired absence of other specified parts of digestive tract; F17.200 Nicotine dependence, unspecified, uncomplicated; Z98.61 Coronary angioplasty status; F32.9 Major depressive disorder, single episode, unspecified; I10 Essential (primary) hypertension; Z86.14 Personal history of Methicillin resistant Staphylococcus aureus infection; Z82.49 Family history of ischemic heart disease and other diseases of the circulatory system; S21.1 Open wound of front wall of thorax without penetration into thoracic cavity; S71.102S Unspecified open wound, left thigh, sequela; W34.00XS Accidental discharge from unspecified firearms or gun, sequela
CPT/HCPCS: 36415; 80053-TC; 80061-TC; 83735-TC; 84100-TC; 84443-TC; 84484-TC; 85025-TC; 87081-TC; 93307-TC; 93880-TC; 93970-TC; G0378; J2270

== ENCOUNTER 2019-04-29 02:07 | Inpatient (IN) | payer OTHER ==
[~2019-04-29] VITALS: Ht 175.3 cm; Wt 89.9 kg
[2019-04-29 04:20] VITALS: BP 118/74
--- NOTE | 2019-04-29 04:25 | NUR ---
RN NOTES RECEIVED PT. FROM MONTSERRAT CAMERON, DIRECT ADMIT, A/OX4/ SB ON TELE MONITOR HR-41,DENIES PAIN AT THIS TIME, NO SOB,... UPON ARRIVAL PATIENT ALREADY TOLD ME THAT THE PAIN MEDICATION WORKING FOR HIM IS DILAUDID.. EXPLAINED TO THE PATIENT THAT WE USUALLY GIVE MORPHINE FOR CHEST PAIN... ADMISSION INSTRUCTION WAS GIVEN , CALL LIGHT WITHIN REACH, [id number], CONTINUE TO MONITOR
[2019-04-29] MEDS ORDERED: LISI10TA5 PO (05:03)
[2019-04-29] MEDS ORDERED: CLOP75TA15 PO (05:06)
[2019-04-29] MEDS ORDERED: VARE1TAB PO (05:07)
[2019-04-29] MEDS ORDERED: HYDR-4354 PO (05:08)
[2019-04-29] MEDS ORDERED: ZOLPIDEM TARTRATE 5 MG TABLET PO PRN (05:30)
[2019-04-29] MEDS ORDERED: ACETAMINOPHEN 325 MG TABLET PO PRN (05:30)
[2019-04-29] MEDS ORDERED: Z GUARD REMEDY 2 OZ OINT TP PRN (05:30)
[2019-04-29] MEDS ORDERED: MAGNESIUM HYDROXIDE 30 ML UDC PO PRN (05:30)
[2019-04-29] MEDS ORDERED: MAG HYDROX/AL HYDROX/SIMETH 30 ML UDC PO PRN (05:30)
--- NOTE | 2019-04-29 06:23 | NUR ---
RN NOTES SPOKE TO DR. BURKETT REGARDING PATIENT ASKING FOR PAIN MEDICATION FOR CHEST PAIN.. KWADWO ACEVES ORDERED, MORPHINE 4 MG IV PRN , ORDER NOTED AND CARRIED OUT
[2019-04-29] MEDS: MORPHINE SULFATE INJ 4 MG/ML DISP.SYRIN IV PRN ×2 (06:36→11:36)
--- NOTE | 2019-04-29 06:40 | NUR ---
RN NOTES RN NOTES COMPLAINED OF CHEST PAIN- MORPHINE 4 MG IV GIVEN ORDERED, V/S STABLE
--- NOTE | 2019-04-29 06:43 | NUR ---
RN NOTES AWAKE, WAITING FOR BREAKFAST, MORNING CARE RENDERED.. PT. NEEDS ATTENDED
[2019-04-29 07:01] LABS: BASOPHILS # (AUTO) 0.1 /CMM (0.0-0.2); BASOPHILS % (AUTO) 0.5 % (0.0-2.0); HEMATOCRIT 35 % (39-51); LYMPHOCYTES # (AUTO) 4.2 /CMM (0.8-4.8); LYMPHOCYTES % (AUTO) 42.4 % (20.0-44.0); MEAN CORPUSCULAR HGB CONC 35 g/dl (31.0-36.0); MEAN CORPUSCULAR VOLUME 95 fL (80-96); MONOCYTES # (AUTO) 0.9 /CMM (0.1-1.30); MONOCYTES % (AUTO) 9.2 % (2.0-12.0); NEUTROPHILS # (AUTO) 4.5 /CMM (1.8-8.9); NEUTROPHILS % (AUTO) 44.9 % (43.0-81.0); PLATELET COUNT (AUTO) 265 /CMM (150-450); RED BLOOD CELL COUNT(AUTO) 3.65 MIL/uL (4.5-6.0); WHITE BLOOD COUNT (AUTO) 9.9 K/uL (4.3-11.0)
[2019-04-29 07:11] LABS: ALANINE AMINOTRANSFERASE 16 U/L (12-78); ALBUMIN 3.4 g/dL (3.4-5.0); ALKALINE PHOSPHATASE 83 U/L (46-116); ASPARTATE AMINOTRANSFERASE 11 U/L (15-37); BILIRUBIN,TOTAL 0.5 mg/dL (0.2-1.0); CALCIUM, SERUM 8.5 mg/dL (8.5-10.1); CARBON DIOXIDE 26 mmol/L (21-32); CHLORIDE 108 mmol/L (98-107); GLUCOSE 91 mg/dL (74-106); POTASSIUM 4.1 mmol/L (3.5-5.1); SODIUM SERUM 143 mmol/L (136-145); TOTAL PROTEIN, SERUM 6.5 g/dL (6.4-8.2); UREA NITROGEN, BLOOD 8 mg/dL (7-18)
--- NOTE | 2019-04-29 07:30 | NUR ---
CARE MANAGEMENT SPECIALIST OPENING NOTES RECEIVED PT RESTING IN BED. A/O X4. TOLERATING RA, WITH NO ACUTE RESPIRATORY DISTRESS NOTED. PT STATED HE HAS PAIN AND JUST HAD MORPHINE GIVEN AT AROUND 0700. NO OTHER DISCOMFORT REPORTED AT THIS MOMENT. PT DENIES QUESTIONS AND CONCERNS AT THIS TIME, PT STATED JUST WANTED TO SEE PATIENT ADMITTING REPRESENTATIVE TODAY AND HE HAS A LIST TO ASK THE MD. PT AWARE MD WILL HAVE ROUNDS THIS MORNING AND PT WILLING TO WAIT. PT ON TELEMONITORING WITH SINUS DAMARIS, HR OF 49; PT ASYMPTOMATIC. PIV TO LAC G20, FLUSHED WITH NS, INTACT AND PATENT. PT KEPT COMFORTABLE. PT'S BED IN LOWEST, LOCKED POSITION WITH SR X2. WILL CONTINUE PLAN OF CARE.
[2019-04-29 08:00] VITALS: BP_SYST 100; BP_SYST 90; BP_DIAS 60
[2019-04-29 12:00] VITALS: BP 90/60
--- NOTE | 2019-04-29 13:01 | NUR ---
RN NOTES SEEN AND EVALUATED BY TS. AWARE OF PT'S REQUEST TO CHANGE PAIN MEDICATION. TS OKAY WITH PT'S REQUEST TO HAVE DILAUDID 1MG Q4H PRN. PT AWARE.
[2019-04-29 16:00] VITALS: BP 92/57
[2019-04-29] MEDS: ONDANSETRON HCL/PF 4 MG/2 ML VIAL IVP PRN (16:14)
--- NOTE | 2019-04-29 17:43 | NUR ---
Patient resides at home with family in [facility]. He is ambulatory and independent with adl's. Has no DME or homehealth reported. Family will provide ride when discharge. Addendum: 04/29/19 at 1743 by JENNIFER COREY RN Amended: Links added.
--- NOTE | 2019-04-29 18:44 | NUR ---
MARKETING SUPPORT MANAGER OPENING NOTES PT REMAINS RESTING IN BED. A/O X4. TOLERATING RA, WITH NO ACUTE RESPIRATORY DISTRESS NOTED. PT DENIES ANY PAIN OR ANY DISCOMFORT AT THIS TIME. PT ON TELEMONITORING WITH SINUS RHYTHM, HR OF 64. PIV TO LAC G20, FLUSHED WITH NS, INTACT AND OPERATIONAL. PT KEPT COMFORTABLE. CALL LIGHT AND FLUID WITHIN REACH. PT'S BED IN LOWEST, LOCKED POSITION WITH SR X2. WILL ENDORSE TO INCOMING INTERNATIONAL LOGISTICS MANAGER NURSE FOR GRABIEL. Addendum: 04/29/19 at 1846 by LUCINDA RG RN THIS NOTE IS CLOSING NOTES. NOT OPENING NOTES.
--- NOTE | 2019-04-29 19:20 | NUR ---
RN OPEN NOTES RECEIVED PATIENT AWAKE IN BED. A/OX4. NO SIGNS OF DISTRESS OR DISCOMFORT. BREATHING EVEN AND UNLABORED. ON TELE MONITORING WITH SR 65 NOTED. DENIES ANY PAIN AT THIS TIME. IV ACCESS IN LAC, PATENT AND INTACT, NO SIGNS OF REDNESS OR INFILTRATION. BED IN LOW LOCKED POSITION WITH SIDE RAILS X2. CALL LIGHT WITHIN REACH. WILL CONTINUE TO MONITOR.
[2019-04-29 20:00] VITALS: BP 96/67
[2019-04-29] MEDS: HYDROMORPHONE 1 MG/1 ML DISP.SYRIN IV PRN (20:56)
--- NOTE | 2019-04-29 20:56 | NUR ---
RN NOTES ADMINISTERED DILAUDID 1MG ORDERED FOR CHEST PAIN 07/09, AT PATIENT REQUEST. VSS. WILL CONTINUE TO MONITOR.
[2019-04-29] MEDS ORDERED: clonazePAM 1 MG TABLET PO PRN (23:30)
[2019-04-29] MEDS ORDERED: HYDROCODONE/APAP 10/325MG 1 EA TABLET PO PRN (23:30)
[2019-04-29] MEDS ORDERED: NITROGLYCERIN 0.4 MG/TAB BOTTLE SL PRN (23:30)
[2019-04-30] VITALS: BP 108/61
[2019-04-30] MEDS: ONDANSETRON HCL/PF 4 MG/2 ML VIAL IVP PRN (01:10)
[2019-04-30] MEDS: HYDROMORPHONE 1 MG/1 ML DISP.SYRIN IV PRN ×4 (01:12→15:53)
--- NOTE | 2019-04-30 01:12 | NUR ---
RN NOTES ADMINISTERED DILAUDID 1MG ORDERED FOR CHEST PAIN 07/09, AT PATIENT REQUEST. VSS. WILL CONTINUE TO MONITOR.
[2019-04-30 04:00] VITALS: BP 106/56
--- NOTE | 2019-04-30 05:26 | NUR ---
RN NOTES ADMINISTERED DILAUDID 1MG ORDERED FOR CHEST PAIN 07/09, AT PATIENT REQUEST. VSS. WILL CONTINUE TO MONITOR.
[2019-04-30 06:23] LABS: CALCIUM, SERUM 8.2 mg/dL (8.5-10.1); MAGNESIUM 1.9 mg/dL (1.8-2.4); PHOSPHORUS 4.6 mg/dL (2.5-4.9); POTASSIUM 4.4 mmol/L (3.5-5.1)
[2019-04-30 06:24] LABS: BASOPHILS # (AUTO) 0.1 /CMM (0.0-0.2); BASOPHILS % (AUTO) 0.6 % (0.0-2.0); EOSINOPHILS % (AUTO) 4.9 % (0.0-6.0); HEMATOCRIT 34 % (39-51); HEMOGLOBIN 11.9 g/dL (13.5-17.5); LYMPHOCYTES # (AUTO) 4.1 /CMM (0.8-4.8); LYMPHOCYTES % (AUTO) 48.3 % (20.0-44.0); MEAN CORPUSCULAR HGB CONC 35 g/dl (31.0-36.0); MEAN CORPUSCULAR VOLUME 96 fL (80-96); MONOCYTES # (AUTO) 0.8 /CMM (0.1-1.30); NEUTROPHILS # (AUTO) 3.2 /CMM (1.8-8.9); NEUTROPHILS % (AUTO) 37.2 % (43.0-81.0); PLATELET COUNT (AUTO) 252 /CMM (150-450); RED BLOOD CELL COUNT(AUTO) 3.56 MIL/uL (4.5-6.0); WHITE BLOOD COUNT (AUTO) 8.5 K/uL (4.3-11.0)
--- NOTE | 2019-04-30 07:15 | NUR ---
RN CLOSING NOTES PATIENT AWAKE IN BED. A/OX4. NO SIGNS OF DISTRESS OR DISCOMFORT. BREATHING EVEN AND UNLABORED. ON TELE MONITORING WITH SR 60 NOTED. STATES PAIN IN CHEST IS 3/10 AND TOLERABLE AT THIS TIME. IV ACCESS IN LAC, PATENT AND INTACT, NO SIGNS OF REDNESS OR INFILTRATION. ALL NEEDS MET. NO SIGNIFICANT CHANGES THROUGH THE NIGHT. BED IN LOW LOCKED POSITION WITH SIDE RAILS X2. CALL LIGHT WITHIN REACH. ENDORSED TO AM SHIFT FOR GRABIEL.
--- NOTE | 2019-04-30 07:40 | NUR ---
SET UP AND LAY OUT INSPECTOR OPENING NOTES RECEIVED PT AWAKE, WALKING AROUND THE UNIT AND THE ROOM. A/O X4. TOLERATING RA, WITH NO ACUTE RESPIRATORY DISTRESS NOTED. PT DENIES PAIN OR ANY DISCOMFORT AT THIS TIME. PT ALSO DENIES QUESTIONS AND CONCERNS. PT ON TELEMONITORING WITH SR, HR OF 64. PIV TO LAC 20, FLUSHED WITH NS, INTACT AND OPERATIONAL. PT KEPT COMFORTABLE. PT'S BED KEPT IN LOWEST, LOCKED POSITION WITH SR X2. CALL LIGHT KEPT WITHIN REACH. WILL CONTINUE PLAN OF CARE.
[2019-04-30 07:41] LABS: THYROID STIMULATING HORMONE 4.731 uIU/mL (0.358-3.74)
[2019-04-30 08:00] VITALS: BP 111/73
[2019-04-30] MEDS: busPIRone 5 MG TABLET PO SCH ×2 (08:42→21:12)
[2019-04-30] MEDS: ASPIRIN EC 81 MG TABLET.DR PO SCH (08:42)
[2019-04-30] MEDS: CLOPIDOGREL BISULFATE 75 MG TABLET PO SCH (08:42)
[2019-04-30] MEDS: METOPROLOL TARTRATE 25 MG TABLET PO SCH ×2 (09:00→16:06)
[2019-04-30] MEDS: LISINOPRIL (10MG) 10 MG TABLET PO SCH (09:00)
[2019-04-30] MEDS: MECLIZINE HCL 25 MG TABLET PO SCH (10:28)
[2019-04-30 12:00] VITALS: BP 120/70
[2019-04-30] MEDS: HYDROCODONE/APAP 5/325MG 1 EACH TABLET PO PRN ×2 (13:51→19:55)
[2019-04-30 16:00] VITALS: BP 105/74
[2019-04-30] MEDS ORDERED: VARENICLINE TARTRATE PO SCH (17:00)
--- NOTE | 2019-04-30 18:56 | NUR ---
LAUNDRY AID OPENING NOTES PT REMAINS IN BEB, AWAKE. A/O X4. TOLERATING RA, WITH NO ACUTE RESPIRATORY DISTRESS NOTED. PT DENIES PAIN OR ANY DISCOMFORT AT THIS TIME. PT ON TELEMONITORING WITH SR, HR OF 98. PIV TO LAC 20, FLUSHED WITH NS, INTACT AND OPERATIONAL. PT ABLE TO MAKE NEEDS KNOWN. ALL NEEDS AND CARE PROVIDED. PT FOR DISCHARGE, ALL DISCHARGE PAPERS ARE DONE AND READY TO BE SIGNED BY PT. PT KEPT COMFORTABLE. PT'S BED KEPT IN LOWEST, LOCKED POSITION WITH SR X2. CALL LIGHT KEPT WITHIN REACH. WILL ENDORSE TO INCOMING ANALYTICS ARCHITECT NURSE FOR GRABIEL. Addendum: 04/30/19 at 1859 by LUCINDA RG RN THIS NOTE IS FOR CLOSING NOTES NOT OPENING.
--- NOTE | 2019-04-30 19:10 | NUR ---
METAL GRADER OPENING NOTES RECEIVED PATIENT IN BED AWAKE ALERT AND ORIENTED X 4, RESPIRATIONS EVEN AND UNLABORED WITH EQUAL RISE AND FALL OF CHEST, DENIES ANY PAIN OR DISCOMFORT AT THIS TIME, IV SITE TO LEFT AC #20G SL INTACT AND PATENT, NO REDNESS, NO INFILTRATION PRESENT, PATIENT IS SCHEDULED FOR DISCHARGE PER PATIENT AWAITING FRIEND TO PICK HIM UP POSSIBLY AT 1 AM. ORIENTED TO STAFF AND CALL LIGHT AND KEPT WITHIN REACH, SAFETY PRECAUTIONS IN PLACE, LOW BED AND LOCKED, ALL NEEDS ATTENDED AT THIS TIME, WILL CONTINUE TO MONITOR AND AWAIT FOR DISCHARGE.
--- NOTE | 2019-04-30 19:55 | NUR ---
RN MS NOTES PATIENT COMPLAINT OF PAIN TO CHEST STATES "06/08" REQUESTING FOR NORCO. NORCO 5/325MG PRN GIVEN ORDERED WILL CONTINUE TO MONITOR FOR EFFECTIVENESS.
[2019-04-30 20:00] VITALS: BP 128/74
--- NOTE | 2019-04-30 21:24 | NUR ---
RN MS NOTES PATIENT UPSET REGARDING DISCHARGE AND POSSIBILITY OF NOT LEAVING ,STATING "FEELING VERY ANXIOUS", STRONGLY REQUESTING FOR KLONOPIN FOR ANXIETY, PRN GIVEN ORDERED WILL CONTINUE TO MONITOR FOR EFFECTIVENESS
[2019-04-30] MEDS ORDERED: hydrOXYzine 10 MG TABLET PO SCH (22:00)
[2019-04-30] MEDS ORDERED: ATORVASTATIN 40 MG TABLET PO SCH (22:00)
[2019-04-30] MEDS ORDERED: TEMAZEPAM 15 MG CAPSULE PO PRN (22:00)
[2019-04-30] MEDS ORDERED: QUETIAPINE FUMARATE 25 MG TABLET PO SCH (22:00)
[2019-04-30] MEDS ORDERED: ESCITALOPRAM OXALATE (10 MG) 10 MG TABLET PO SCH (22:00)
[2019-04-30] MEDS ORDERED: PRAZOSIN HCL 1 MG CAPSULE PO SCH (22:00)
--- NOTE | 2019-04-30 22:39 | NUR ---
RODRIGO MS NOTES MADE AWARE PATIENT DOES NOT HAVE TRANSPORTATION TO HOME FOR TONIGHT AND WAS SCHEDULED FOR DISCHARGE , PATIENT WILL BE STAYING OVERNIGHT NEW ORDER PER MD TO DISCONTINUE DILAUDID. READ BACK AND CARRIED OUT. Addendum: 05/01/19 at 0212 by ABY MARISCAL RN PATIENT STATES HIS "FRIEND WILL NOT BE ABLE TO PICK HIM UP TONIGHT".
--- NOTE | 2019-04-30 22:47 | NUR ---
RN MS NOTES PATIENT STATES USUALLY TAKES RESTORIL AT NIGHT FOR SLEEP , REQUESTING FOR RESTORIL. PRN ORDERED GIVEN, WILL CONTINUE TO MONITOR, PATIENT MADE AWARE OF DILALEAXID D/CD BY .
--- NOTE | 2019-05-01 06:35 | NUR ---
RN MS CLOSING NOTES PATIENT IN BED AWAKE ALERT AND ORIENTED X 4, RESPIRATIONS EVEN AND UNLABORED WITH EQUAL RISE AND FALL OF CHEST, DENIES ANY PAIN OR DISCOMFORT AT THIS TIME, SLEPT WELL THROUGH THE NIGHT IV SITE TO LEFT AC #20G SL INTACT AND PATENT, NO REDNESS, NO INFILTRATION PRESENT, PATIENT IS SCHEDULED FOR DISCHARGE THIS AM AND MADE AWARE, VERBALIZES HE UNDERSTANDS, PER MD ORDER PATIENT TO BE DISCHARGED TO HOME MAY GO BY [employer]I VOUCHER , CALL LIGHT KEPT WITHIN REACH AT THIS TIME, SAFETY PRECAUTIONS IN PLACE, LOW BED AND LOCKED, ALL NEEDS ATTENDED AT THIS TIME, WILL CONTINUE TO MONITOR AND ENDORSE TO NEXT SHIFT FOR DISCHARGE.
--- NOTE | 2019-05-01 07:27 | NUR ---
RN OPENING NOTES RECEIVED PT IN BED, AWAKE. A/O X4. TOLERATING RA, WITH NO ACUTE RESPIRATORY DISTRESS NOTED. PT DENIES PAIN OR ANY DISCOMFORT AT THIS TIME. PT ALSO DENIES QUESTIONS AND CONCERNS. PT AWARE OF DISCHARGE TODAY. PIV TO LAC 20, FLUSHED WITH NS, INTACT AND OPERATIONAL. PT KEPT COMFORTABLE. PT'S BED KEPT IN LOWEST, LOCKED POSITION WITH SR X2. CALL LIGHT KEPT WITHIN REACH. WILL CONTINUE PLAN OF CARE.
[2019-05-01 08:00] VITALS: BP 96/69
[2019-05-01] MEDS: CLOPIDOGREL BISULFATE 75 MG TABLET PO SCH (08:53)
[2019-05-01] MEDS: busPIRone 5 MG TABLET PO SCH (08:53)
[2019-05-01] MEDS: ASPIRIN EC 81 MG TABLET.DR PO SCH (08:53)
[2019-05-01] MEDS: METOPROLOL TARTRATE 25 MG TABLET PO SCH (09:00)
[2019-05-01] MEDS: LISINOPRIL (10MG) 10 MG TABLET PO SCH (09:00)
[2019-05-01] MEDS: MECLIZINE HCL 25 MG TABLET PO SCH (09:00)
--- NOTE | 2019-05-01 09:20 | NUR ---
PT SITTER NOTES PT TO DISCHARGE HOME. PT STATED HE'LL WALK UP TO [facility] WHERE HIS MOM LIVES AND A FRIEND WILL PICK HIM UP LATER TO GO TO [place]. PT AOX4. PT DENIES PAIN OR ANY DISCOMFORT BY THE TIME OF DISCHARGE. REVIEWED AND SIGNED DISCHARGE INSTRUCTIONS AND INVENTORY LIST BY PT. PT SKIN IS INTACT. PT REFUSED FOR LEFT ARM BRUISED TO BE TAKEN, NO PICTURE FILED ON THE CHART. ALL NEEDS ATTENDED. PT LEFT THE UNIT AT 0910, ESCORTED BY MANAGER OF TIRES SALES TO THE LOBBY. VITALS STABLE. MELISSA/REJI AND AWARE OF DISCHARGE.
--- NOTE | 2019-05-01 09:22 | NUR ---
RN NOTES HOME MEDICINES OF PATIENTS GIVEN TO PT AT THE TIME OF DISCHARGE AND HIS CIGARETTES AND BANJO REPAIR PERSON.
== END 2019-05-01 09:00 | disposition home or self-care (01) | DRG 198 ==
LOC: TELE 04:00 → MED 04-30 21:14
PROVIDERS: ADMIT Nurse Practitioner Acute Care; ATTEND Nurse Practitioner Acute Care
DX: R07.89 Other chest pain (principal); I25.10 Atherosclerotic heart disease of native coronary artery without angina pectoris; E78.5 Hyperlipidemia, unspecified; F17.200 Nicotine dependence, unspecified, uncomplicated; F41.9 Anxiety disorder, unspecified; I10 Essential (primary) hypertension; Z95.5 Presence of coronary angioplasty implant and graft; Z90.49 Acquired absence of other specified parts of digestive tract; Z82.49 Family history of ischemic heart disease and other diseases of the circulatory system; I25.2 Old myocardial infarction; K57.90 Diverticulosis of intestine, part unspecified, without perforation or abscess without bleeding; F43.10 Post-traumatic stress disorder, unspecified; G89.4 Chronic pain syndrome; Z79.82 Long term (current) use of aspirin; Z79.899 Other long term (current) drug therapy; W34.00XS Accidental discharge from unspecified firearms or gun, sequela
CPT/HCPCS: 36415; 80048-TC; 80053-TC; 80061-TC; 83735-TC; 84100-TC; 84443-TC; 84484-TC; 85025-TC; 87081-TC; 93307-TC; G0378; J1170; J2270; J2405; J8597; Q0177

== ENCOUNTER 2019-05-01 20:20 | Emergency (ER) | payer OTHER ==
[~2019-05-01] VITALS: Ht 175.3 cm; Wt 90.7 kg
[~2019-05-01 20:20] MED LIST changes: +CLOP75TA15 PO; +HYDR-4354 PO; +LISI10TA5 PO; +VARE1TAB PO
[2019-05-01] MEDS ORDERED: IV NS 0.9% 500 ML BAG IV ONE (21:00)
--- NOTE | 2019-05-01 21:00 | NUR ---
IV INITAITED LAC 20G. LABS DRAWN FROM SITE. TRANSITIONAL STUDIES INSTRUCTOR AT BEDSIDE FOR COLLECTION. IV INTACT AND PATENT.
--- NOTE | 2019-05-01 21:00 | NUR ---
BIBSELF C/O CHEST TIGHTNESS X1 DAY. PT RECENTLY DX FROM [facility] X12HR SERVICE MEMBER. PT ALSO C/O DIZZINESS AND ABDOMINAL CRAMPING. PT DENIES SOB, NAUSEA, VOMITTING. PT AAOX4. RESPIRATIONS EVEN AND UNLABORED. SKIN WARM AND INTACT. VITAL SIGNS STABLE. PLACED IN GOWN AND ON CONTINUOUS COMPUTATIONAL LINGUIST, WILL CONTINUE TO MONITOR
[2019-05-01 21:05] LABS: BASOPHILS # (AUTO) 0.1 /CMM (0.0-0.2); BASOPHILS % (AUTO) 0.6 % (0.0-2.0); EOSINOPHILS % (AUTO) 3.8 % (0.0-6.0); HEMATOCRIT 37 % (39-51); HEMOGLOBIN 12.8 g/dL (13.5-17.5); LYMPHOCYTES # (AUTO) 3.7 /CMM (0.8-4.8); LYMPHOCYTES % (AUTO) 38.7 % (20.0-44.0); MEAN CORPUSCULAR HGB CONC 34 g/dl (31.0-36.0); MEAN CORPUSCULAR VOLUME 96 fL (80-96); MONOCYTES # (AUTO) 0.7 /CMM (0.1-1.30); MONOCYTES % (AUTO) 6.9 % (2.0-12.0); NEUTROPHILS # (AUTO) 4.7 /CMM (1.8-8.9); PLATELET COUNT (AUTO) 287 /CMM (150-450); RED BLOOD CELL COUNT(AUTO) 3.88 MIL/uL (4.5-6.0); WHITE BLOOD COUNT (AUTO) 9.5 K/uL (4.3-11.0)
[2019-05-01 21:15] LABS: CALCIUM, SERUM 9.1 mg/dL (8.5-10.1); CARBON DIOXIDE 28 mmol/L (21-32); CHLORIDE 103 mmol/L (98-107); CREATININE 1.1 mg/dL (0.6-1.3); GLUCOSE 112 mg/dL (74-106); POTASSIUM 3.9 mmol/L (3.5-5.1); SODIUM SERUM 140 mmol/L (136-145); UREA NITROGEN, BLOOD 10 mg/dL (7-18)
--- NOTE | 2019-05-01 21:17 | NUR ---
RADIOLOGY AT BEDSIDE FOR XRAY
[2019-05-01 21:28] LABS: ALANINE AMINOTRANSFERASE 17 U/L (12-78); ALBUMIN 3.9 g/dL (3.4-5.0); ALKALINE PHOSPHATASE 93 U/L (46-116); ASPARTATE AMINOTRANSFERASE 14 U/L (15-37); B-TYPE NATRIURETIC PEPTIDE 76 PG/ML (0-125); BILIRUBIN,DIRECT 0.1 mg/dL (0.0-0.2); BILIRUBIN,TOTAL 0.4 mg/dL (0.2-1.0); TOTAL PROTEIN, SERUM 7.6 g/dL (6.4-8.2)
--- NOTE | 2019-05-01 21:54 | NUR ---
Patient discharged to home in stable condition. Written and verbal after care instructions given. Patient verbalizes understanding of instruction. IV removed. Catheter intact and site benign. Pressure and 4x4 applied to site. No bleeding noted. Pt ambulatory with a steady gait
[2019-05-01 21:56] VITALS: BP 147/84
== END 2019-05-01 21:57 | disposition home or self-care (01) ==
LOC: ER 20:26
DX: R42 Dizziness and giddiness (principal); R53.1 Weakness; I10 Essential (primary) hypertension; I25.10 Atherosclerotic heart disease of native coronary artery without angina pectoris; F41.9 Anxiety disorder, unspecified; F32.9 Major depressive disorder, single episode, unspecified; F43.10 Post-traumatic stress disorder, unspecified; F17.200 Nicotine dependence, unspecified, uncomplicated; Z95.818 Presence of other cardiac implants and grafts; Z79.899 Other long term (current) drug therapy; Z79.82 Long term (current) use of aspirin
CPT/HCPCS: 36415; 71045; 80048; 80076; 83880; 84484; 85025; 93005; 99284; J7040

== ENCOUNTER 2019-05-04 22:16 | Inpatient (IN) | payer OTHER ==
[~2019-05-04] VITALS: Ht 175.3 cm; Wt 90.5 kg
[~2019-05-04 22:16] MED LIST changes: -CALC60OI5 TP; -CARI350T PO; -DESO15OI3 TP; -NITR1PAT67 TD; -PROP10TA10 PO; -RAMI2.5C2 PO
--- NOTE | 2019-05-05 01:10 | NUR ---
TELE/RN NOTES RECEIVED PT., A DIRECT ADMIT FROM [facility] VIA [facility]. PT. IS AWAKE, ALERT AND ORIENTED X4. BREATHING EVEN AND UNLABORED ON ROOM AIR. NO SOB, RESPIRATORY DISTRESS OR COMPLAINTS OF PAIN NOTED AT THIS TIME. NO COMPLAINTS OF LIGHTHEADEDNESS OR DIZZINESS NOTED AT THIS TIME. ORIENTED PT. TO ROOM. PLACED EXTERNAL BAR HOST ON PT. CURRENT RHYTHM = SINUS DAMARIS HR 47. PT. WITH LEFT AC 18 GAUGE IV SALINE LOCK PRESENT, PATENT AND INTACT. WILL INPUT PT. HOME MEDICATIONS LIST AND CALL DR. BEARD FOR ADMITTING ORDERS. BED LOCKED AND IN LOWEST POSITION, SIDE RAILS UP X2, CALL LIGHT WITHIN REACH, WILL CONTINUE TO MONITOR.
[2019-05-05 01:13] VITALS: BP 110/73
[2019-05-05] MEDS ORDERED: DILT-32 PO (02:41)
[2019-05-05] MEDS ORDERED: OXYC5CAP18 PO (02:41)
[2019-05-05] MEDS ORDERED: HYDROCODONE/APAP 10/325MG 1 EA TABLET PO PRN (03:00)
[2019-05-05] MEDS ORDERED: ONDANSETRON HCL/PF 4 MG/2 ML VIAL IVP PRN (03:00)
[2019-05-05] MEDS ORDERED: Z GUARD REMEDY 2 OZ OINT TP PRN (03:00)
[2019-05-05] MEDS ORDERED: MAG HYDROX/AL HYDROX/SIMETH 30 ML UDC PO PRN (03:00)
[2019-05-05] MEDS ORDERED: MAGNESIUM HYDROXIDE 30 ML UDC PO PRN (03:00)
[2019-05-05] MEDS ORDERED: NITROGLYCERIN 0.4 MG/TAB BOTTLE SL PRN (03:00)
[2019-05-05] MEDS ORDERED: ACETAMINOPHEN 325 MG TABLET PO PRN (03:00)
[2019-05-05] MEDS ORDERED: ZOLPIDEM TARTRATE 5 MG TABLET PO PRN (03:00)
[2019-05-05] MEDS ORDERED: oxyCODONE IR immediate release 5 MG PO PRN (03:00)
[2019-05-05] MEDS: IV NS 0.9% 1,000 ML IV SCH ×3 (03:37→18:45)
[2019-05-05 04:00] VITALS: BP 106/64
--- NOTE | 2019-05-05 07:00 | NUR ---
TELE/RN NOTES PT. IS LYING IN BED AWAKE, ALERT AND ORIENTED X4. BREATHING EVEN AND UNLABORED ON ROOM AIR. NO SOB, RESPIRATORY DISTRESS OR COMPLAINTS OF PAIN NOTED AT THIS TIME. NO COMPLAINTS OF LIGHTHEADEDNESS OR DIZZINESS NOTED AT THIS TIME. PT. WITH EXTERNAL BOSS MINER PRESENT AND INTACT, PT. CURRENT RHYTHM = SINUS DAMARIS HR 48. PT. WITH LEFT AC 18 GAUGE PERIPHERAL IV PRESENT, PATENT AND INTACT ADMINISTERING TO PT. NS @ 125 ML/HR. ALL PT. NEEDS MET. BED LOCKED AND IN LOWEST POSITION, SIDE RAILS UP X2, CALL LIGHT WITHIN REACH, WILL ENDORSE TO DAYSHIFT NURSE FOR CONTINUITY OF CARE.
--- NOTE | 2019-05-05 07:35 | NUR ---
MS RN RECEIVED ON BED, AWAKE,ALERT, ORIENTED X4 NOT IN ANY FORM OF DISTRESS, RESPIRATIONS EVEN AND UNLABORED,NO SOB NOTED, LUNGS ARE CLEAR,ABDOMEN SOFT,POSITIVE BOWEL SOUNDS,DENIES PAIN AT THIS TIME.WILL MONITOR PATIENT.
[2019-05-05 07:48] LABS: BASOPHILS % (AUTO) 0.5 % (0.0-2.0); EOSINOPHILS % (AUTO) 3.6 % (0.0-6.0); HEMATOCRIT 34 % (39-51); HEMOGLOBIN 11.8 g/dL (13.5-17.5); LYMPHOCYTES # (AUTO) 3.7 /CMM (0.8-4.8); LYMPHOCYTES % (AUTO) 38.5 % (20.0-44.0); MEAN CORPUSCULAR HGB CONC 34 g/dl (31.0-36.0); MEAN CORPUSCULAR VOLUME 96 fL (80-96); MONOCYTES # (AUTO) 0.8 /CMM (0.1-1.30); NEUTROPHILS # (AUTO) 4.7 /CMM (1.8-8.9); NEUTROPHILS % (AUTO) 49.4 % (43.0-81.0); PLATELET COUNT (AUTO) 245 /CMM (150-450); RED BLOOD CELL COUNT(AUTO) 3.58 MIL/uL (4.5-6.0); WHITE BLOOD COUNT (AUTO) 9.6 K/uL (4.3-11.0)
[2019-05-05 08:00] VITALS: BP 92/58
[2019-05-05 08:10] LABS: CALCIUM, SERUM 8.3 mg/dL (8.5-10.1); CREATININE 0.9 mg/dL (0.6-1.3); MAGNESIUM 1.9 mg/dL (1.8-2.4); PHOSPHORUS 3.2 mg/dL (2.5-4.9); POTASSIUM 4.5 mmol/L (3.5-5.1)
[2019-05-05] MEDS ORDERED: DILTIAZEM SR 60 MG PO SCH (09:00)
[2019-05-05] MEDS: LISINOPRIL (20MG) 20 MG TABLET PO SCH (09:00)
[2019-05-05] MEDS ORDERED: LISINOPRIL (10MG) 10 MG TABLET PO SCH (09:00)
[2019-05-05] MEDS ORDERED: METOPROLOL TARTRATE 25 MG TABLET PO SCH (09:00)
[2019-05-05] MEDS ORDERED: DILTIAZEM HCL CD 120 MG PO SCH ×2 (09:00)
[2019-05-05] MEDS: MECLIZINE HCL 25 MG TABLET PO SCH (09:00)
[2019-05-05] MEDS: AMLODIPINE BESYLATE 5 MG TABLET PO SCH (09:30)
--- NOTE | 2019-05-05 09:45 | NUR ---
MS WALLACE BREAKFAST SERVED,DUE MEDS GIVEN,TOLERATED WELL.
[2019-05-05] MEDS: ASPIRIN EC 81 MG TABLET.DR PO SCH (10:17)
[2019-05-05] MEDS: busPIRone 5 MG TABLET PO SCH ×2 (10:18→21:35)
[2019-05-05] MEDS: HYDROCODONE/APAP 5/325MG 1 EACH TABLET PO PRN ×2 (10:18→17:25)
[2019-05-05] MEDS: CLOPIDOGREL BISULFATE 75 MG TABLET PO SCH (10:22)
--- NOTE | 2019-05-05 11:00 | NUR ---
MS RODRIGO WAS SEEN BY TADEO JAMES W/ ORDERS MADE AND CARRIED OUT.
[2019-05-05] MEDS: clonazePAM 1 MG TABLET PO PRN (11:47)
[2019-05-05] MEDS ORDERED: MORPHINE SULFATE INJ 2 MG/ML DISP.SYRIN IV PRN (13:30)
[2019-05-05 16:00] VITALS: BP 96/48
--- NOTE | 2019-05-05 17:35 | NUR ---
Readmitted less than 7days with Dx.Syncope. Patient resides at home with family in [facility]. He is ambulatory and independent with adl's. Has no DME or homehealth reported. Family will provide ride when discharge. Addendum: 05/05/19 at 1736 by JENNIFER COREY RN Amended: Links added.
--- NOTE | 2019-05-05 19:00 | NUR ---
MS RN ON BED, NO DISTRESS NOTED,ALL NEEDS ATTENDED.
--- NOTE | 2019-05-05 19:10 | NUR ---
BUSINESS PLANNING ANALYST NOTE RECEIVED PT IN STABLE CONDITION A&O X4, ABLE TO MAKE NEEDS KNOWN. CURRENTLY IN BED WATCHING TV. NO SIGS OF SOB OR DISTRESS, NO C/O PAIN. IV PATENT AND INTACT WITH IVF INFUSING, TOLERATING WELL. TELE MONITOR: SR 60. ALL CURRENT NEEDS MET. BED LOW, LOCKED, UPPER RAILS UP, AND CALL LIGHT WITHIN REACH. WILL CONT. TO MONITOR.
[2019-05-05 20:00] VITALS: BP 96/63
[2019-05-05] MEDS ORDERED: hydrOXYzine PAMOATE 25 MG CAPSULE PO SCH (22:00)
[2019-05-05] MEDS ORDERED: ATORVASTATIN 40 MG TABLET PO SCH (22:00)
[2019-05-05] MEDS ORDERED: ESCITALOPRAM OXALATE (10 MG) 10 MG TABLET PO SCH (22:00)
[2019-05-05] MEDS ORDERED: PRAZOSIN HCL 1 MG CAPSULE PO SCH (22:00)
[2019-05-05] MEDS ORDERED: QUETIAPINE FUMARATE 100 MG TABLET PO SCH (22:00)
[2019-05-05] MEDS ORDERED: TEMAZEPAM 15 MG CAPSULE PO SCH (22:00)
[2019-05-06] MEDS: IV NS 0.9% 1,000 ML IV SCH ×2 (03:08→11:00)
--- NOTE | 2019-05-06 06:14 | NUR ---
TOWER CONTROL OPERATOR NOTE PRN OXYCODONE 5 MG GIVEN FOR PAIN 8/10 IN L KNEE. WILL CONT. TO MONITOR.
--- NOTE | 2019-05-06 06:21 | NUR ---
MEDICAL BILLING AND CODING SPECIALIST NOTE PT IN STABLE CONDITION A&O X4, ABLE TO MAKE NEEDS KNOWN. CURRENTLY IN BED WATCHING TV. NO SIGNS OF SOB OR DISTRESS, NO C/O PAIN. IV PATENT AND INTACT WITH IVF INFUSING, TOLERATING WELL. TELE MONITOR: SR 59. ALL CURRENT NEEDS MET. BED LOW, LOCKED, UPPER RAILS UP, AND CALL LIGHT WITHIN REACH. WILL CONT. TO MONITOR AND ENDORSE TO NEXT SHIFT FOR GRABIEL.
[2019-05-06 07:31] LABS: BASOPHILS # (AUTO) 0.1 /CMM (0.0-0.2); BASOPHILS % (AUTO) 0.7 % (0.0-2.0); EOSINOPHILS % (AUTO) 5.5 % (0.0-6.0); HEMATOCRIT 35 % (39-51); HEMOGLOBIN 11.9 g/dL (13.5-17.5); LYMPHOCYTES # (AUTO) 3.5 /CMM (0.8-4.8); LYMPHOCYTES % (AUTO) 47.4 % (20.0-44.0); MEAN CORPUSCULAR HGB CONC 34 g/dl (31.0-36.0); MEAN CORPUSCULAR VOLUME 96 fL (80-96); MONOCYTES # (AUTO) 0.6 /CMM (0.1-1.30); NEUTROPHILS # (AUTO) 2.9 /CMM (1.8-8.9); NEUTROPHILS % (AUTO) 38.4 % (43.0-81.0); PLATELET COUNT (AUTO) 245 /CMM (150-450); RED BLOOD CELL COUNT(AUTO) 3.63 MIL/uL (4.5-6.0); WHITE BLOOD COUNT (AUTO) 7.5 K/uL (4.3-11.0)
[2019-05-06 07:43] LABS: CALCIUM, SERUM 8.3 mg/dL (8.5-10.1); MAGNESIUM 1.8 mg/dL (1.8-2.4); PHOSPHORUS 3.8 mg/dL (2.5-4.9); POTASSIUM 3.7 mmol/L (3.5-5.1)
[2019-05-06 08:00] VITALS: BP 110/70
--- NOTE | 2019-05-06 08:00 | NUR ---
MS RN OPENING NOTES Receive Patient asleep in bed. A/O x 4. VS stable with no acute distress. Noted HR-67. Breathing even and unlabored on room air with no respiratory distress. No signs and symptoms of pain. Oxycodone 5mg administered at 0614 per previous shift. D/C telemonitor per Cory ANDERSON. 22g RFA clean, dry, intact and flushing well with IVF NS running at 125ml/hr. Safety precautions in place. Bed locked and set to lowest position with side rails x 2 up. Will continue to monitor.
[2019-05-06] MEDS: LISINOPRIL (20MG) 20 MG TABLET PO SCH (09:00)
[2019-05-06] MEDS: AMLODIPINE BESYLATE 5 MG TABLET PO SCH (09:00)
[2019-05-06] MEDS: MECLIZINE HCL 25 MG TABLET PO SCH (09:46)
[2019-05-06] MEDS: ASPIRIN EC 81 MG TABLET.DR PO SCH (09:46)
[2019-05-06] MEDS: busPIRone 5 MG TABLET PO SCH (09:47)
[2019-05-06] MEDS: CLOPIDOGREL BISULFATE 75 MG TABLET PO SCH (09:48)
[2019-05-06] MEDS ORDERED: AMLO5TAB9 PO (09:50)
[2019-05-06] MEDS: clonazePAM 1 MG TABLET PO PRN (14:12)
[2019-05-06 16:00] VITALS: BP 136/93
--- NOTE | 2019-05-06 17:25 | NUR ---
MS LOSS CONTROL ENGINEER NOTES Patient discharged at this time going HOME. VS stable with no acute distress. Breathing even and unlabored on room air with no respiratory distress. No episodes of syncope during shift. Denies pain. Noted scabs on BILATERAL LOWER EXTREMITIES. Patient refused skin assessment pictures. Medication reconciliation and discharge orders reviewed and explained to Patient. Patient verbalized understanding. All belongings with Patient. Patient will follow primary MD and follow changed medication regimen. Escorted Patient to the Lobby for safety. Patient ambulatory and stated that he will visit his mother at [facility].
== END 2019-05-06 17:30 | disposition home or self-care (01) | DRG 204 ==
LOC: TELE 05-05 01:01 → MED 05-06 08:33
PROVIDERS: ADMIT Nurse Practitioner Acute Care; ATTEND Nurse Practitioner Acute Care
DX: R55 Syncope and collapse (principal); E78.5 Hyperlipidemia, unspecified; I10 Essential (primary) hypertension; I25.10 Atherosclerotic heart disease of native coronary artery without angina pectoris; F43.10 Post-traumatic stress disorder, unspecified; F32.9 Major depressive disorder, single episode, unspecified; G89.4 Chronic pain syndrome; Z98.61 Coronary angioplasty status; F17.200 Nicotine dependence, unspecified, uncomplicated; J44.9 Chronic obstructive pulmonary disease, unspecified; Z80.9 Family history of malignant neoplasm, unspecified; Z82.49 Family history of ischemic heart disease and other diseases of the circulatory system
CPT/HCPCS: 36415; 70450-TC; 73564-TC; 80048-TC; 80061-TC; 83735-TC; 84100-TC; 85025-TC; 87081-TC; G0378; J2270; J7030; J8597; Q0177

== ENCOUNTER 2019-09-01 19:01 | Emergency (ER) | payer OTHER ==
[~2019-09-01] VITALS: Ht 175.3 cm; Wt 84.4 kg
[~2019-09-01 19:01] MED LIST changes: +AMLO5TAB9 PO; -METO25TA6 PO; +OXYC5CAP18 PO
--- NOTE | 2019-09-01 19:15 | NUR ---
BIBA FOR C/O S/P SYNCOPAL EPISODE W/ HITTING HIS HEAD. PT CURRENTLY W/ C/O H/A AND MEDICAL CP RADIATING TO THE L ARM AND JAW. PLACED ON A MONITOR. VSS. WILL CONT TO MONITOR ,
--- NOTE | 2019-09-01 19:20 | NUR ---
LAC 20G. END TIME: 2020
[2019-09-01] MEDS ORDERED: IV NS 0.9% 1,000 ML BAG IV ONE ×2 (19:30→21:00)
[2019-09-01 19:32] LABS: BASOPHILS # (AUTO) 0.1 /CMM (0.0-0.2); BASOPHILS % (AUTO) 0.7 % (0.0-2.0); HEMATOCRIT 32 % (39-51); HEMOGLOBIN 10.8 g/dL (13.5-17.5); LYMPHOCYTES # (AUTO) 2.7 /CMM (0.8-4.8); MEAN CORPUSCULAR HGB CONC 34 g/dl (31.0-36.0); MEAN CORPUSCULAR VOLUME 96 fL (80-96); MONOCYTES # (AUTO) 0.7 /CMM (0.1-1.30); MONOCYTES % (AUTO) 8.1 % (2.0-12.0); NEUTROPHILS # (AUTO) 4.3 /CMM (1.8-8.9); NEUTROPHILS % (AUTO) 52.2 % (43.0-81.0); PLATELET COUNT (AUTO) 274 /CMM (150-450); RED BLOOD CELL COUNT(AUTO) 3.32 MIL/uL (4.5-6.0); WHITE BLOOD COUNT (AUTO) 8.3 K/uL (4.3-11.0)
[2019-09-01 19:39] LABS: CALCIUM, SERUM 8.7 mg/dL (8.5-10.1); CARBON DIOXIDE 27 mmol/L (21-32); CHLORIDE 109 mmol/L (98-107); CREATININE 1.2 mg/dL (0.6-1.3); GLUCOSE 95 mg/dL (74-106); POTASSIUM 3.9 mmol/L (3.5-5.1); SODIUM SERUM 143 mmol/L (136-145); UREA NITROGEN, BLOOD 6 mg/dL (7-18)
[2019-09-01] MEDS ORDERED: ACETAMINOPHEN 325 MG TABLET ONE (20:37)
[2019-09-01] MEDS ORDERED: ACETAMINOPHEN 325 MG TABLET PO ONE (21:00)
[2019-09-01] MEDS ORDERED: ONDANSETRON HCL/PF 4 MG/2 ML VIAL ONE (21:10)
[2019-09-01] MEDS ORDERED: ONDANSETRON HCL/PF - ER 4 MG/2 ML VIAL IV ONE (21:30)
--- NOTE | 2019-09-01 22:43 | NUR ---
pt is medically cleared to be discharged home. however pt stated has no place to go. md aware. pt will stay over night and will be referred to sw for placement in AM.
--- NOTE | 2019-09-01 23:45 | NUR ---
Patient is resting comfortably in bed with eyes closed. Easily aroused. VSS
--- NOTE | 2019-09-02 05:44 | NUR ---
IV removed. Catheter intact and site benign. Pressure and 4x4 applied to site. No bleeding noted.Patient is medcally discharged and is in stable condition. Written and verbal after care instructions given. Patient verbalizes understanding of instruction. Pt will stay to be seen by a sw if he is willing to.
[2019-09-02 05:46] VITALS: BP 124/73
== END 2019-09-02 05:47 | disposition home or self-care (01) ==
LOC: ER 19:04
DX: R55 Syncope and collapse (principal); R51 Headache; I10 Essential (primary) hypertension; I25.10 Atherosclerotic heart disease of native coronary artery without angina pectoris; I25.2 Old myocardial infarction; F43.10 Post-traumatic stress disorder, unspecified; F41.9 Anxiety disorder, unspecified; F32.9 Major depressive disorder, single episode, unspecified; F10.10 Alcohol abuse, uncomplicated; F17.200 Nicotine dependence, unspecified, uncomplicated; R00.1 Bradycardia, unspecified; Y90.9 Presence of alcohol in blood, level not specified; Z79.82 Long term (current) use of aspirin; Z95.5 Presence of coronary angioplasty implant and graft
CPT/HCPCS: 36415; 70450; 71045; 80048; 83735; 84484 ×2; 85025; 93005; 96361; 96374; 99284; J2405; J7030 ×2

== ENCOUNTER 2019-09-20 21:41 | Emergency (ER) | payer OTHER ==
[~2019-09-20] VITALS: Ht 175.3 cm; Wt 85.3 kg
--- NOTE | 2019-09-20 21:50 | NUR ---
PT BIBRA C/O "CHEST PAIN/PRESSURE TOOK X3 NITRO. 324 ASPIRIN GIVEN BY EMS" -SOB NOTED. +DIZZY. VSS AT THIS TIME. AOX4. PT IN GOWN AND ON MONITOR IN BED 2. WILL CONTINUE TO MONITOR.
--- NOTE | 2019-09-20 21:57 | NUR ---
BLOOD DRAWN AND GIVEN TO LAB
[2019-09-20 21:58] LABS: BASOPHILS # (AUTO) 0.1 /CMM (0.0-0.2); BASOPHILS % (AUTO) 0.7 % (0.0-2.0); EOSINOPHILS % (AUTO) 4.2 % (0.0-6.0); HEMATOCRIT 34 % (39-51); HEMOGLOBIN 11.2 g/dL (13.5-17.5); LYMPHOCYTES # (AUTO) 2.9 /CMM (0.8-4.8); LYMPHOCYTES % (AUTO) 36.1 % (20.0-44.0); MEAN CORPUSCULAR HGB CONC 34 g/dl (31.0-36.0); MEAN CORPUSCULAR VOLUME 97 fL (80-96); MONOCYTES # (AUTO) 0.7 /CMM (0.1-1.30); MONOCYTES % (AUTO) 8.1 % (2.0-12.0); NEUTROPHILS # (AUTO) 4.1 /CMM (1.8-8.9); NEUTROPHILS % (AUTO) 50.9 % (43.0-81.0); PLATELET COUNT (AUTO) 254 /CMM (150-450); RED BLOOD CELL COUNT(AUTO) 3.48 MIL/uL (4.5-6.0); WHITE BLOOD COUNT (AUTO) 8.1 K/uL (4.3-11.0)
[2019-09-20 22:09] LABS: CALCIUM, SERUM 8.6 mg/dL (8.5-10.1); CARBON DIOXIDE 26 mmol/L (21-32); CHLORIDE 102 mmol/L (98-107); CREATININE 1.2 mg/dL (0.6-1.3); GLUCOSE 119 mg/dL (74-106); POTASSIUM 3.9 mmol/L (3.5-5.1); SODIUM SERUM 136 mmol/L (136-145); UREA NITROGEN, BLOOD 11 mg/dL (7-18)
--- NOTE | 2019-09-20 22:18 | NUR ---
RADIOLOGY AT BEDSIDE FOR XRAY
[2019-09-20 22:26] LABS: ALANINE AMINOTRANSFERASE 25 U/L (12-78); ALBUMIN 3.7 g/dL (3.4-5.0); ALKALINE PHOSPHATASE 77 U/L (46-116); ASPARTATE AMINOTRANSFERASE 15 U/L (15-37); BILIRUBIN,DIRECT 0.1 mg/dL (0.0-0.2); BILIRUBIN,TOTAL 0.2 mg/dL (0.2-1.0)
--- NOTE | 2019-09-20 22:26 | NUR ---
TECH AT BEDSIDE FOR EKG
[2019-09-20] MEDS ORDERED: MORPHINE SULFATE INJ 2 MG/ML DISP.SYRIN ONE (22:57)
[2019-09-20] MEDS ORDERED: MORPHINE SULFATE INJ 2 MG/ML DISP.SYRIN IV ONE (23:00)
[2019-09-20] MEDS ORDERED: ONDANSETRON HCL/PF 4 MG/2 ML VIAL ONE (23:01)
--- NOTE | 2019-09-20 23:14 | NUR ---
PT ACCEPTED TO [facility]. AWAITING TRANSFER INFORMATION.
[2019-09-20] MEDS ORDERED: ONDANSETRON HCL/PF - ER 4 MG/2 ML VIAL IV ONE (23:30)
[2019-09-21 00:23] VITALS: BP 97/66
--- NOTE | 2019-09-21 00:23 | NUR ---
Patient is resting comfortably in bed with eyes closed. Easily aroused. VSS.
--- NOTE | 2019-09-21 01:15 | NUR ---
SPOKE TO JOELLE FROM [facility]: PT WILL BE GOING TO [facility], ROOM 222-B. NUMBER FOR REPORT IS [phone]. [facility] ETA 60-75 MIN.
--- NOTE | 2019-09-21 01:47 | NUR ---
REPORT GIVEN TO RODRIGO PINEDA FOR GRABIEL AT [facility]
--- NOTE | 2019-09-21 01:48 | NUR ---
REPORT GIVEN TO AMBULANCE FOR [employer]INC[employer]AL
== END 2019-09-21 01:55 | disposition short-term general hospital (02) ==
LOC: ER 21:51
DX: R07.89 Other chest pain (principal); I10 Essential (primary) hypertension; I25.2 Old myocardial infarction; I25.10 Atherosclerotic heart disease of native coronary artery without angina pectoris; F43.10 Post-traumatic stress disorder, unspecified; F41.9 Anxiety disorder, unspecified; F32.9 Major depressive disorder, single episode, unspecified; F10.10 Alcohol abuse, uncomplicated; F17.200 Nicotine dependence, unspecified, uncomplicated; Y90.9 Presence of alcohol in blood, level not specified; Z79.82 Long term (current) use of aspirin; Z79.899 Other long term (current) drug therapy; Z95.5 Presence of coronary angioplasty implant and graft
CPT/HCPCS: 36415; 71045; 80048; 80076; 84484; 85025; 93005; 96374; 96375; 99285; 99406; J2270; J2405

== ENCOUNTER 2019-10-28 17:07 | Inpatient (IN) | payer OTHER ==
[~2019-10-28] VITALS: Ht 167.6 cm; Wt 86.2 kg
[~2019-10-28 17:07] MED LIST changes: -HYDR-3028 PO; +HYDR50TA61 PO; -MECL-102 PO; +MECL-159 PO
--- NOTE | 2019-10-28 17:21 | NUR ---
CAME IN FOR LEFT SIDED PRESSURE LIKE CHEST PAIN, NON-RADIATING, ALSO C/O DIZZINESS. "Was visiting my mom felt dizzy and started having pressure on chest felt it go to side/back", TO ER BED 9, HOOKED TO MONITOR, CHANGED TO HOSP GOWN, PROVIDED W WARM BLANKET, AWAITING MD OBREGON.
--- NOTE | 2019-10-28 17:28 | NUR ---
DR CALLAHAN AT BEDSIDE
[2019-10-28] MEDS ORDERED: NITROGLYCERIN PACKET 1 GM PACKET TD ONE (17:30)
[2019-10-28] MEDS ORDERED: ASPIRIN 81 MG TAB.CHEW PO ONE (17:30)
--- NOTE | 2019-10-28 17:49 | NUR ---
WEATHERIZATION INSTALLER AT BEDSIDE
[2019-10-28 17:50] LABS: BASOPHILS % (AUTO) 0.3 % (0.0-2.0); EOSINOPHILS % (AUTO) 2.1 % (0.0-6.0); HEMATOCRIT 34 % (39-51); HEMOGLOBIN 11.2 g/dL (13.5-17.5); LYMPHOCYTES # (AUTO) 2.6 /CMM (0.8-4.8); LYMPHOCYTES % (AUTO) 28.2 % (20.0-44.0); MEAN CORPUSCULAR HGB CONC 33 g/dl (31.0-36.0); MEAN CORPUSCULAR VOLUME 97 fL (80-96); MONOCYTES # (AUTO) 0.8 /CMM (0.1-1.30); NEUTROPHILS # (AUTO) 5.6 /CMM (1.8-8.9); NEUTROPHILS % (AUTO) 60.4 % (43.0-81.0); PLATELET COUNT (AUTO) 266 /CMM (150-450); RED BLOOD CELL COUNT(AUTO) 3.48 MIL/uL (4.5-6.0); WHITE BLOOD COUNT (AUTO) 9.2 K/uL (4.3-11.0)
[2019-10-28] MEDS ORDERED: ASPIRIN 81 MG TAB.CHEW ONE (17:51)
[2019-10-28] MEDS ORDERED: NITROGLYCERIN PACKET 1 GM PACKET ONE (17:51)
--- NOTE | 2019-10-28 17:59 | NUR ---
CALLED FOR TELE BED AND TURNED IN MOVE SHEET
[2019-10-28 18:01] LABS: CALCIUM, SERUM 8.6 mg/dL (8.5-10.1); CARBON DIOXIDE 30 mmol/L (21-32); CHLORIDE 104 mmol/L (98-107); CREATININE 1.1 mg/dL (0.6-1.3); GLUCOSE 103 mg/dL (74-106); POTASSIUM 3.3 mmol/L (3.5-5.1); SODIUM SERUM 140 mmol/L (136-145); UREA NITROGEN, BLOOD 6 mg/dL (7-18)
[2019-10-28 18:06] LABS: ALANINE AMINOTRANSFERASE 14 U/L (12-78); ALBUMIN 3.5 g/dL (3.4-5.0); ALKALINE PHOSPHATASE 79 U/L (46-116); ASPARTATE AMINOTRANSFERASE 10 U/L (15-37); BILIRUBIN,DIRECT 0.1 mg/dL (0.0-0.2); BILIRUBIN,TOTAL 0.3 mg/dL (0.2-1.0); TOTAL PROTEIN, SERUM 6.7 g/dL (6.4-8.2)
[2019-10-28] MEDS ORDERED: ISOS30TA6 PO (18:08)
[2019-10-28] MEDS ORDERED: RANO500T3 PO (18:08)
--- NOTE | 2019-10-28 18:56 | NUR ---
spoke to abdulkadir [facility] case manager0 for patient clinicals. call back number [phone]
--- NOTE | 2019-10-28 19:22 | NUR ---
GOT BED 108
--- NOTE | 2019-10-28 19:30 | NUR ---
REPORT GIVEN TO DAVID WALLACE FOR GRABIEL
--- NOTE | 2019-10-28 19:34 | NUR ---
PT RECEIVED IN BED. AAOX4. NO RSP DISTRESS NOTED. PT C/O NAUSEA AND L CHEST PAIN 06/08. MD MADE AWARE AND RECEIVED ORDERS TO GIVE ZOFRAN 4MG IV X 1 DOSE AND MORPHINE 2MG IV X 1 DOSE. ORDERS NOTED AND CARRIED OUT.
[2019-10-28] MEDS ORDERED: ONDANSETRON HCL/PF 4 MG/2 ML VIAL ONE (19:37)
[2019-10-28] MEDS ORDERED: MORPHINE SULFATE INJ 2 MG/ML DISP.SYRIN ONE (19:38)
--- NOTE | 2019-10-28 19:39 | NUR ---
REPORT GIVEN TO ROYAL OF TELE UNIT
--- NOTE | 2019-10-28 19:50 | NUR ---
PT TRANSPORTED TO UNIT WITH EMT AND RN AT BEDSIDE W/ ACLS PROTOCOL. NAD NOTED DURING TRANSPORT.
[2019-10-28 20:00] VITALS: BP_SYST 142; BP_SYST 144; BP_DIAS 85
[2019-10-28] MEDS ORDERED: MORPHINE SULFATE INJ 2 MG/ML DISP.SYRIN IV ONE (20:30)
[2019-10-28] MEDS ORDERED: ONDANSETRON HCL/PF 4 MG/2 ML VIAL IVP ONE (20:30)
[2019-10-29] VITALS: BP 102/58
[2019-10-29 04:00] VITALS: BP 107/70
--- NOTE | 2019-10-29 06:23 | NUR ---
RN NOTES RECEIVED PATIENT FROM ER VIA STRETCHER AT ABOUT 2000. IN NO DISTRESS NOTED. ALERT AND ORIENTED. ABLE TO VERBALLY COMMUNICATE NEEDS. VITAL SIGNS WNL. SKIN INTACT. VITAL SIGNS WNL. WITH ORDERS FOR CT ANGIOGRAM AND 2DECHO IN AM. NPO AFTER MIDNIGHT. WILL ENDORSE TO NEXT SHIFT FOR CONTINUITY OF CARE.
[2019-10-29 06:42] LABS: BASOPHILS % (AUTO) 0.5 % (0.0-2.0); HEMATOCRIT 32 % (39-51); HEMOGLOBIN 10.8 g/dL (13.5-17.5); LYMPHOCYTES # (AUTO) 3.5 /CMM (0.8-4.8); LYMPHOCYTES % (AUTO) 45.4 % (20.0-44.0); MEAN CORPUSCULAR HGB CONC 34 g/dl (31.0-36.0); MEAN CORPUSCULAR VOLUME 96 fL (80-96); MONOCYTES # (AUTO) 0.9 /CMM (0.1-1.30); MONOCYTES % (AUTO) 11.6 % (2.0-12.0); NEUTROPHILS # (AUTO) 2.9 /CMM (1.8-8.9); NEUTROPHILS % (AUTO) 38.5 % (43.0-81.0); PLATELET COUNT (AUTO) 249 /CMM (150-450); RED BLOOD CELL COUNT(AUTO) 3.29 MIL/uL (4.5-6.0); WHITE BLOOD COUNT (AUTO) 7.6 K/uL (4.3-11.0)
[2019-10-29 07:15] LABS: POTASSIUM 3.6 mmol/L (3.5-5.1)
[2019-10-29 08:00] VITALS: BP 127/85
[2019-10-29] MEDS ORDERED: clonazePAM 1 MG TABLET PO PRN (08:30)
[2019-10-29] MEDS: MORPHINE SULFATE INJ 2 MG/ML DISP.SYRIN IV PRN ×2 (08:56→13:53)
[2019-10-29] MEDS ORDERED: ISOSORBIDE MONONITRATE (30MG) 30 MG TAB.SR.24H PO SCH (09:00)
[2019-10-29] MEDS ORDERED: ASPIRIN EC 81 MG TABLET.DR PO SCH (09:00)
[2019-10-29] MEDS ORDERED: CLOPIDOGREL BISULFATE 75 MG TABLET PO SCH (09:00)
[2019-10-29] MEDS ORDERED: Medication Not On Formulary EA (Ranolazine (Ranexa) 500 MG) PO SCH (09:00)
[2019-10-29] MEDS ORDERED: ALPRAZOLAM 0.25 MG TABLET PO ONE (09:30)
[2019-10-29] MEDS: CARISOPRODOL 350 MG TABLET PO SCH ×2 (10:04→13:53)
[2019-10-29 12:00] VITALS: BP 122/79
--- NOTE | 2019-10-29 15:55 | NUR ---
RN DC NOTE RECEIVED D/C ORDER TO HOME. PATIENT CONTINUES TO COMPLAIN OF CHEST PAIN, SEEN BY CARDIOLOGY AND PRIMARY DR. GAMEZ. IV CATH REMOVED INTACT, PRESSURE DRESSING APPLIED. FOLLOW UP W/ PCP + SHIPPING COORDINATOR. PATIENT STATES HAS APT WITH HIS SHIPPING COORDINATOR ON THURSDAY. BELONGINGS CHECKLIST SIGNED. ALL BELONGINGS WITH PATIENT. NO WOUND PICTURES TO BE TAKEN.
[2019-10-29 18:09] LABS: THYROID STIMULATING HORMONE 1.804 uIU/mL (0.358-3.74)
[2019-10-29] MEDS ORDERED: PRAZOSIN HCL 1 MG CAPSULE PO SCH (22:00)
[2019-10-29] MEDS ORDERED: ATORVASTATIN 40 MG TABLET PO SCH (22:00)
[2019-10-29] MEDS ORDERED: ESCITALOPRAM OXALATE (10 MG) 10 MG TABLET PO SCH (22:00)
== END 2019-10-29 15:00 | disposition home or self-care (01) | DRG 198 ==
LOC: ER 17:12 → TELE1 19:35
PROVIDERS: ADMIT Internal Medicine; ATTEND Internal Medicine
DX: R07.89 Other chest pain (principal); I25.10 Atherosclerotic heart disease of native coronary artery without angina pectoris; D64.9 Anemia, unspecified; E78.5 Hyperlipidemia, unspecified; I10 Essential (primary) hypertension; R00.1 Bradycardia, unspecified; Z95.5 Presence of coronary angioplasty implant and graft; Z79.02 Long term (current) use of antithrombotics/antiplatelets; F32.9 Major depressive disorder, single episode, unspecified; I25.2 Old myocardial infarction; F43.10 Post-traumatic stress disorder, unspecified
CPT/HCPCS: 36415; 71045-TC; 80048-TC; 80061-TC; 80076-TC; 84443-TC; 84484-TC; 85025-TC; 87081-TC; 93307-TC; G0378; J2270; J2405

== ENCOUNTER 2020-07-26 06:25 | Emergency (ER) | payer OTHER ==
[~2020-07-26] VITALS: Ht 175.3 cm; Wt 81.6 kg
[~2020-07-26 06:25] MED LIST changes: -AMLO5TAB9 PO; +ISOS30TA6 PO; -LISI10TA5 PO; -MECL-159 PO; -OXYC5CAP18 PO; -QUET100T PO; +RANO500T3 PO; -VARE1TAB PO
--- NOTE | 2020-07-26 06:30 | NUR ---
PT CAME IN FOR MIDSTERNAL CHEST PAIN RADIATING TO THE L SIDE OF THE CHEST SINCE 529 TODAY. +DIZZINESS. PT TOOK 3 NITRO TABS SL W/ NO RELIEF. PT AAOX4, VSS, RESPIRATIONS EVEN AND UNLABORED ON RA W/ NAD NOTED. PT CONNECTED TO THE FILTRATION PLANT OPERATOR AND POX.
[2020-07-26] MEDS ORDERED: ONDANSETRON HCL/PF 4 MG/2 ML VIAL ONE (06:49)
[2020-07-26] MEDS ORDERED: MORPHINE SULFATE INJ 4 MG/ML DISP.SYRIN ONE (06:49)
[2020-07-26] MEDS ORDERED: ASPIRIN 325 MG TABLET ONE (06:49)
[2020-07-26] MEDS: ASPIRIN 325 MG TABLET PO ONE (06:57)
[2020-07-26] MEDS: ONDANSETRON HCL/PF 4 MG/2 ML VIAL IVP ONE (06:57)
[2020-07-26] MEDS: MORPHINE SULFATE INJ 2 MG/ML DISP.SYRIN IV ONE (06:57)
--- NOTE | 2020-07-26 06:57 | NUR ---
XRAY AT BEDSIDE
[2020-07-26 07:01] LABS: BASOPHILS % (AUTO) 0.4 % (0.0-2.0); EOSINOPHILS % (AUTO) 3.5 % (0.0-6.0); HEMATOCRIT 37 % (39-51); HEMOGLOBIN 12.3 g/dL (13.5-17.5); LYMPHOCYTES # (AUTO) 2.9 /CMM (0.8-4.8); LYMPHOCYTES % (AUTO) 33.2 % (20.0-44.0); MEAN CORPUSCULAR HGB CONC 34 g/dl (31.0-36.0); MEAN CORPUSCULAR VOLUME 100 fL (80-96); MONOCYTES # (AUTO) 0.9 /CMM (0.1-1.30); MONOCYTES % (AUTO) 10.2 % (2.0-12.0); NEUTROPHILS # (AUTO) 4.5 /CMM (1.8-8.9); NEUTROPHILS % (AUTO) 52.7 % (43.0-81.0); PLATELET COUNT (AUTO) 272 /CMM (150-450); RED BLOOD CELL COUNT(AUTO) 3.69 MIL/uL (4.5-6.0); WHITE BLOOD COUNT (AUTO) 8.6 K/uL (4.3-11.0)
[2020-07-26 07:08] LABS: CALCIUM, SERUM 8.4 mg/dL (8.5-10.1); CARBON DIOXIDE 26 mmol/L (21-32); CHLORIDE 107 mmol/L (98-107); CREATININE 1.2 mg/dL (0.6-1.3); GLUCOSE 112 mg/dL (74-106); POTASSIUM 3.1 mmol/L (3.5-5.1); SODIUM SERUM 143 mmol/L (136-145); UREA NITROGEN, BLOOD 11 mg/dL (7-18)
--- NOTE | 2020-07-26 07:18 | NUR ---
REPORT GIVEN TO LUANNE DEY RN FOR GRABIEL
--- NOTE | 2020-07-26 07:24 | NUR ---
RECEIVED REPORT FROM RODRIGO MISTRY FOR GRABIEL. PT IS AAOX4, NOT IN RESPIRATORY DISTRESS, V/S STABLE, KEPT RESTED AND COMFORTABLE. WILL CONTINUE TO MONITOR.
--- NOTE | 2020-07-26 09:39 | NUR ---
IV removed. Catheter intact and site benign. Pressure and 4x4 applied to site. No bleeding noted. Patient discharged to home in stable condition. Written and verbal after care instructions given. Patient verbalizes understanding of instruction.
[2020-07-26 09:40] VITALS: BP 112/62
== END 2020-07-26 09:40 | disposition home or self-care (01) ==
LOC: ER 06:27
DX: F41.9 Anxiety disorder, unspecified (principal); R07.89 Other chest pain; R55 Syncope and collapse; I10 Essential (primary) hypertension; I25.10 Atherosclerotic heart disease of native coronary artery without angina pectoris; F43.10 Post-traumatic stress disorder, unspecified; E78.00 Pure hypercholesterolemia, unspecified; Z76.0 Encounter for issue of repeat prescription; Z76.5 Malingerer [conscious simulation]; Z95.5 Presence of coronary angioplasty implant and graft; Z98.890 Other specified postprocedural states; Z79.82 Long term (current) use of aspirin; Z79.899 Other long term (current) drug therapy
CPT/HCPCS: 36415; 71045; 80048; 84484; 85025; 93005; 96374; 96375; 99285; J2270; J2405

== ENCOUNTER 2020-10-12 18:26 | Inpatient (IN) | payer OTHER ==
[~2020-10-12] VITALS: Ht 175.3 cm; Wt 86.2 kg
--- NOTE | 2020-10-12 19:00 | NUR ---
pt came to ER. ambulatory with walker. with c/o chest pain radiating to left arm of 9/10. for 1hour. noted with sob. no diaphoresis. awaiting for MD becerra
--- NOTE | 2020-10-12 19:05 | NUR ---
at bedside for eval
--- NOTE | 2020-10-12 19:10 | NUR ---
iv line established. blood drawn and sent to lab
[2020-10-12 19:16] LABS: BASOPHILS # (AUTO) 0.1 /CMM (0.0-0.2); BASOPHILS % (AUTO) 0.7 % (0.0-2.0); EOSINOPHILS % (AUTO) 2.4 % (0.0-6.0); HEMATOCRIT 40 % (39-51); HEMOGLOBIN 13.4 g/dL (13.5-17.5); LYMPHOCYTES # (AUTO) 2.9 /CMM (0.8-4.8); MEAN CORPUSCULAR HGB CONC 33 g/dl (31.0-36.0); MEAN CORPUSCULAR VOLUME 100 fL (80-96); MONOCYTES # (AUTO) 0.8 /CMM (0.1-1.30); MONOCYTES % (AUTO) 9.4 % (2.0-12.0); NEUTROPHILS # (AUTO) 4.2 /CMM (1.8-8.9); NEUTROPHILS % (AUTO) 51.5 % (43.0-81.0); PLATELET COUNT (AUTO) 306 /CMM (150-450); RED BLOOD CELL COUNT(AUTO) 4.04 MIL/uL (4.5-6.0); WHITE BLOOD COUNT (AUTO) 8.2 K/uL (4.3-11.0)
[2020-10-12] MEDS ORDERED: NITROGLYCERIN PACKET 1 GM PACKET ONE (19:16)
[2020-10-12 19:26] LABS: CALCIUM, SERUM 8.9 mg/dL (8.5-10.1); CARBON DIOXIDE 28 mmol/L (21-32); CHLORIDE 102 mmol/L (98-107); CREATININE 1.1 mg/dL (0.6-1.3); GLUCOSE 113 mg/dL (74-106); POTASSIUM 3.8 mmol/L (3.5-5.1); SODIUM SERUM 137 mmol/L (136-145); UREA NITROGEN, BLOOD 7 mg/dL (7-18)
[2020-10-12] MEDS ORDERED: NITROGLYCERIN PACKET 1 GM PACKET TD ONE (19:30)
[2020-10-12 19:39] LABS: B-TYPE NATRIURETIC PEPTIDE 48 PG/ML (0-125)
--- NOTE | 2020-10-12 20:14 | NUR ---
COVID SWAB SAMPLE COLLECTED AND SENT TO THE LAB.
[2020-10-12] MEDS ORDERED: LORAZEPAM INJ 2 MG/ML VIAL ONE (20:21)
[2020-10-12] MEDS ORDERED: ASPIRIN 81 MG TAB.CHEW PO ONE (20:30)
[2020-10-12] MEDS ORDERED: LORAZEPAM INJ 2 MG/ML VIAL IV ONE (20:30)
[2020-10-12] MEDS ORDERED: ASPIRIN 81 MG TAB.CHEW ONE (20:45)
[2020-10-12] MEDS ORDERED: ONDANSETRON HCL/PF 4 MG/2 ML VIAL IV ONE (22:00)
[2020-10-12] MEDS ORDERED: MORPHINE SULFATE INJ 4 MG/ML DISP.SYRIN IV ONE (22:00)
[2020-10-12] MEDS ORDERED: ONDANSETRON HCL/PF 4 MG/2 ML VIAL IVP PRN (23:00)
[2020-10-12] MEDS ORDERED: MAG HYDROX/AL HYDROX/SIMETH 30 ML UDC PO PRN (23:00)
[2020-10-12] MEDS ORDERED: ZOLPIDEM TARTRATE 5 MG TABLET PO PRN (23:00)
[2020-10-12] MEDS ORDERED: MAGNESIUM HYDROXIDE 30 ML UDC PO PRN (23:00)
[2020-10-12] MEDS ORDERED: HYDROCODONE/APAP 10/325MG TABLET PO PRN (23:00)
[2020-10-12] MEDS ORDERED: NITROGLYCERIN 0.4 MG/TAB BOTTLE SL PRN ×2 (23:00→23:30)
[2020-10-12] MEDS ORDERED: clonazePAM 1 MG TABLET PO PRN (23:00)
[2020-10-12] MEDS ORDERED: ACETAMINOPHEN 325 MG TABLET PO PRN (23:00)
[2020-10-12] MEDS ORDERED: Z GUARD REMEDY 2 OZ OINT TP PRN (23:00)
--- NOTE | 2020-10-12 23:15 | NUR ---
RN NOTES RECEIVED REPORT FOR PATIENR ADMISSION FROM ER AND SPOKE WITH MARYSOL. ADMISSION REPORT TAKEN WITH ALL PERTINENT AND SIGNIFICANT INFO REGARDING PT'S HISTORY. CHEMICAL PREPARER MADE AWARE. AWAITING FOR PT TO BE TRANSFERRED INTO THE UNIT.
[2020-10-12] MEDS ORDERED: MORPHINE SULFATE INJ 4 MG/ML DISP.SYRIN ONE (23:19)
--- NOTE | 2020-10-12 23:22 | NUR ---
REPORT GIVEN TO MARIANNE ELLINGTON RN FOR GRABIEL.
--- NOTE | 2020-10-12 23:45 | NUR ---
"RN NOTE | ADMISSION RECEIVED PT FROM ER VIA [facility] ACCOMPANIED BY 2 ER STAFFs AND TRANSFERRED TO BED VIA 2 PERSON ASSIST. PT IS ALERT AND ORIENTED X4. PT ON 4L O2 VIA NC, WITH RESPIRATIONS EVEN AND UNLABORED. COMPREHENSIVE PHYSICAL ASSESSMENT DONE. CALL LIGHT WITHIN REACH, SAFETY MEASURES IN PLACE, WILL CONTINUE MONITOR AND ASSESS THROUGHOUT THE SHIFT. WILL CARRY OUT MD ORDERS ACCORDINGLY."
--- NOTE | 2020-10-12 23:49 | NUR ---
PATIENT TAKEN UP TO ASSIGNED ROOM FOR GRABIEL.
[2020-10-13] VITALS: BP 117/80
[2020-10-13 04:00] VITALS: BP 114/70
--- NOTE | 2020-10-13 04:10 | NUR ---
RN NOTES PATIENT COMPLAINED OF CHEST PAIN AROUND 5-6 ON A PAIN SCALE OF 0-10. WIND OPERATIONS MANAGER MADE AWARE. WILL CHECK FOR ANY PRN MEDS FOR POSSIBLE ADMINISTRATIONS.
--- NOTE | 2020-10-13 04:12 | NUR ---
RN NOTES RN NOTED PRN MEDICATION OF NITROGLYCERIN 0.4MG <1TAB> SL, HOWEVER UPON CHECKING BP IS @114/70 AND HEART RATE IS AT 46BPM. FORESTER SILVICULTURE MADE AWARE. WILL CALL MEGAN ANDERSON TO VERIFY IF RN CAN ADMINISTER MEDS CONSIDERING THE BP AND HR. -CALLED DR. BEARD AND ADVISED ABOUT THE PT'S CHEST PAIN AND THE ACTIVE PRN MEDICATION OF NITROGLYCERIN 0.4MG <1TAB> SL, AND THE MOST RECENT V/S: BP IS @114/70 AND HEART RATE IS AT 46BPM. ASKED IF MEDICATION CAN BE GIVEN CONSIDERING THE BP AND HR. HE SAYS YES OKAY TO GIVE MEDICATIONS. FORESTER SILVICULTURE MADE AWARE. WILL CONTINUE TO ASSESS AND MONITOR THROUGHOUT THE SHIFT.
[2020-10-13] MEDS: HYDROCODONE/APAP 5/325MG TABLET PO PRN ×2 (05:39→09:46)
[2020-10-13 05:51] LABS: BASOPHILS % (AUTO) 0.2 % (0.0-2.0); EOSINOPHILS % (AUTO) 2.7 % (0.0-6.0); HEMATOCRIT 38 % (39-51); HEMOGLOBIN 12.5 g/dL (13.5-17.5); LYMPHOCYTES # (AUTO) 2.9 /CMM (0.8-4.8); LYMPHOCYTES % (AUTO) 31.4 % (20.0-44.0); MEAN CORPUSCULAR HGB CONC 33 g/dl (31.0-36.0); MEAN CORPUSCULAR VOLUME 99 fL (80-96); MONOCYTES # (AUTO) 1.1 /CMM (0.1-1.30); MONOCYTES % (AUTO) 12.2 % (2.0-12.0); NEUTROPHILS # (AUTO) 4.9 /CMM (1.8-8.9); NEUTROPHILS % (AUTO) 53.5 % (43.0-81.0); PLATELET COUNT (AUTO) 270 /CMM (150-450); RED BLOOD CELL COUNT(AUTO) 3.79 MIL/uL (4.5-6.0); WHITE BLOOD COUNT (AUTO) 9.1 K/uL (4.3-11.0)
[2020-10-13 06:09] LABS: CALCIUM, SERUM 8.4 mg/dL (8.5-10.1); CREATININE 1.1 mg/dL (0.6-1.3); MAGNESIUM 1.9 mg/dL (1.8-2.4); PHOSPHORUS 3.1 mg/dL (2.5-4.9); POTASSIUM 4.4 mmol/L (3.5-5.1)
--- NOTE | 2020-10-13 07:00 | NUR ---
RN CLOSING NOTE: PATIENT REMAINS IN ROOM. NO SIGNS OF RESPIRATORY DISTRESS. SAFETY MEASURES IMPLEMENTED, BED IN LOWEST POSITION, LOCKED, SIDE RAILS UP, CALL LIGHT WITHIN REACH. ALL NEEDS AND ORDERS ADDRESSED DURING THE SHIFT. ALL DUE MEDS GIVEN ORDERED & SCHEDULED ; PATIENT TOLERATED WELL.PATIENT KEPT CLEAN AND COMFORTABLE WITHIN THE SHIFT. ENDORSED TO INCOMING SHIFT RN FOR CONTINUITY OF CARE.
--- NOTE | 2020-10-13 07:15 | NUR ---
RN OPENING NOTE Received patient asleep in bed appears calm and relaxed no signs of distress. Patient on NC 2L tolerating well o2 sat 96%. Patient is AO x4 Sinus Bradycardia 50-60s. Noted with walker at bedside. Has RAC #18. No co pain or discomfort. Safety measures maintained. Bed locked and on lowest position. Will cont to monitor.
[2020-10-13 07:54] VITALS: BP 115/79
[2020-10-13 08:00] VITALS: BP 115/79
[2020-10-13] MEDS ORDERED: ASPIRIN EC 81 MG TABLET.DR PO SCH (09:00)
[2020-10-13] MEDS ORDERED: RANOLAZINE 500 MG TAB.ER.12H PO SCH (09:00)
[2020-10-13] MEDS ORDERED: CLOPIDOGREL BISULFATE 75 MG TABLET PO SCH (09:00)
[2020-10-13] MEDS ORDERED: busPIRone 5 MG TABLET PO SCH (09:00)
[2020-10-13] MEDS ORDERED: ISOSORBIDE MONONITRATE (30MG) 30 MG TAB.SR.24H PO SCH (09:00)
--- NOTE | 2020-10-13 09:45 | NUR ---
PATIENT COMPLAINED OF CHEST PAIN. HE DOES NOT WANT TO TAKE NITRO SAID IS NOT EFFECTIVE. OFFERED NORCO. PATIENT AGREES.
[2020-10-13] MEDS ORDERED: MELO-105 PO (09:58)
[2020-10-13] MEDS ORDERED: AMLO5TAB4 PO (09:58)
[2020-10-13] MEDS ORDERED: LISI40TA4 PO (09:58)
[2020-10-13] MEDS ORDERED: ARIP10TA9 PO (09:58)
[2020-10-13] MEDS ORDERED: RANO10003 PO (09:58)
[2020-10-13] MEDS ORDERED: ALBU8.5H8 IH (09:58)
[2020-10-13] MEDS ORDERED: FLUT1BLS6 IH (09:58)
[2020-10-13 11:34] VITALS: BP 95/65
[2020-10-13 12:00] VITALS: BP 95/65
--- NOTE | 2020-10-13 12:32 | NUR ---
PATIENT WANTS TO LEAVE AMA. [employer] SURGICAL SERVICES MANAGER AT BEDSIDE. STILL WANTS TO LEAVE AMA. PREPARED PAPERWORK AND HAVE AMA FORM SIGNED.
--- NOTE | 2020-10-13 12:43 | NUR ---
DISCHARGE NOTE PATIENT SIGNED AMA. IV REMOVED, NO SIGNS OF UNCONTROLLED BLEEDING. ALL BELONGINGS WITH PATIENT. PATIENT LEFT VIA INSURANCE CAR TO HOME.
[2020-10-13] MEDS ORDERED: ESCITALOPRAM OXALATE (10 MG) 10 MG TABLET PO SCH (22:00)
[2020-10-13] MEDS ORDERED: PRAZOSIN HCL 1 MG CAPSULE PO SCH (22:00)
[2020-10-13] MEDS ORDERED: ATORVASTATIN 40 MG TABLET PO SCH (22:00)
[2020-10-13] MEDS ORDERED: hydrOXYzine PAMOATE 50 MG CAPSULE PO SCH (22:00)
[2020-10-13] MEDS ORDERED: TEMAZEPAM 15 MG CAPSULE PO SCH (22:00)
[2020-10-14] MEDS ORDERED: Medication Not On Formulary EA (Lisinopril 40 MG) PO SCH (09:00)
[2020-10-14] MEDS ORDERED: AMLODIPINE BESYLATE 5 MG TABLET PO SCH (09:00)
== END 2020-10-13 12:40 | disposition left against medical advice (07) | DRG 203 ==
LOC: ER 18:31 → TELE1 22:20
PROVIDERS: ADMIT Family Medicine; ATTEND Family Medicine
DX: M94.0 Chondrocostal junction syndrome [Tietze] (principal); I25.10 Atherosclerotic heart disease of native coronary artery without angina pectoris; Z95.5 Presence of coronary angioplasty implant and graft; I10 Essential (primary) hypertension; I25.2 Old myocardial infarction; Z91.19 Patient's noncompliance with other medical treatment and regimen; Z90.49 Acquired absence of other specified parts of digestive tract; Z87.19 Personal history of other diseases of the digestive system; W34.00XS Accidental discharge from unspecified firearms or gun, sequela; Z96.642 Presence of left artificial hip joint; F32.9 Major depressive disorder, single episode, unspecified; F43.10 Post-traumatic stress disorder, unspecified; E78.5 Hyperlipidemia, unspecified; E11.65 Type 2 diabetes mellitus with hyperglycemia; E78.00 Pure hypercholesterolemia, unspecified; Z84.1 Family history of disorders of kidney and ureter; Z79.82 Long term (current) use of aspirin; Z79.899 Other long term (current) drug therapy; D63.8 Anemia in other chronic diseases classified elsewhere; Z79.02 Long term (current) use of antithrombotics/antiplatelets; Z82.49 Family history of ischemic heart disease and other diseases of the circulatory system; J98.11 Atelectasis; Z72.0 Tobacco use
CPT/HCPCS: 36415; 71045-TC; 80048-TC; 80061-TC; 83735-TC; 83880; 84100-TC; 84484-TC; 85025-TC; 85730-TC; 87081-TC; C9803; G0378; J2060; J2270; J2405